=== PATIENT | female | born 1980 | race Caucasian/White ===

== ENCOUNTER 2017-06-27 23:50 | Observation (INO) | payer OTHER ==
[~2017-06-27 23:50] MED LIST: ASPI81TA25 PO; DARV PO; LABE200T2 PO; MEDR4PAK3 PO; NAPR550 PO; PREN29TA PO; PROM6.257 PO; SULF-154 PO; SYNT25TA PO; Z.0.NO CURRENT MEDS; ZITHTAB6 PO
[2017-06-28] VITALS (79 sets, daily range): BP systolic 98–156; BP diastolic 60–94; PULSE 64–90; RESP 16–20; TEMP 97.4–98.7; O2SAT 95–98
[2017-06-28] MEDS ORDERED: ACETAMINOPHEN 325 MG TAB PO PRN (01:15)
[2017-06-28] MEDS ORDERED: SODIUM CHLORIDE 0.9% FLUSH 10 ML FLUSH IV FLUSH PRN (01:15)
[2017-06-28] MEDS ORDERED: ZOLPIDEM TARTRATE 5 MG TAB PO PRN (01:15)
[2017-06-28] MEDS ORDERED: LABETALOL HCL 100 MG/20 ML VIAL IV PUSH PRN ×3 (01:15→01:30)
[2017-06-28] MEDS ORDERED: ONDANSETRON ODT 4 MG TAB PO PRN (01:15)
[2017-06-28] MEDS ORDERED: ALUMINUM/MAGNESIUM/SIMETH 30 ML CUP PO PRN (01:15)
--- NOTE | 2017-06-28 01:22 | HHI.HP ---
HPI Chief Complaint HATFIELD, swelling, elevated BP Date Seen: Jun 28, 2017 Time Seen: 01:15 Travel History International Travel<30 Days: No Contact w/Intl Traveler<30Days: No Known Affected Area: No History of Present Illness HPI Pt is a 36y/o G1 @ 25.6wks with lynda twins (IVF). She has PNC in [place]. She presented to the [facility] ED this evening due to HATFIELD, swelling, and diarrhea. While there, BPs were initially 180s/100s. They nadired at 150s/ 90s. Labs were performed and were significant for plts of 170s and elevated LFTs in the 60s. She has known cHTN and is on labetalol 200mg qday. She was transferred here for further evaluation/monitoring. No LOF, VB, ctx. +FM x2. is complicated by: -- IVF -- twins -- cHTN (on labetalol 200mg qday, ASA 81mg) -- worsening BPs/elevated LFTs -- hypothyroidism (on levothyroxine 25mcg qday) -- AMA Weeks Gestation: 25 Para: 0 : 1 History Past Medical History Narrative Medical cHTN hypothyroidism Obstetric History Obstetric History 1. current, IVF , lynda twins Past Surgical History Narrative Surgical IVF LSC ovarian cystectomy b/l bunionectomy Family History Family History: Negative Social History Alcohol Use: No Tobacco Use: No Substance Abuse: No Allergies-Medications (Allergen,Severity, Reaction): Coded Allergies: codeine (Verified Allergy, Unknown, Nausea/Vomiting, 06/27/17) No Known Allergies (Verified Adverse Reaction, Unknown, 06/27/17) Home Meds Reported Medications Labetalol (Labetalol) 200 Mg Tab, 200 MG PO DAILY for Blood Pressure Management , TAB 0 Refills 06/27/[address] (Aspirin Low Dose) 81 Mg Tabdr, 81 MG PO DAILY, TAB 06/27/17 Vit-Iron Carbonyl ( Plus Iron 29-1 mg) 29 Mg Iron-1 Mg Tab, 1 TAB PO DAILY for Nutritional Supplement, #30 TAB 0 Refills 06/27/17 Levothyroxine (Synthroid) 25 Mcg Tab, 25 MCG PO DAILY for Thyroid, #30 TAB 0 Refills 06/27/17 Review of Systems Except as stated in HPI: all other systems reviewed are Neg Physical Exam Narrative General: well developed, well nourished, no acute distress HEENT: normocephalic atraumatic, extraocular movements intact, neck supple Abdomen: soft, gravid, nontender, nondistended Extremities: full range of motion Skin: normal coloration, no rashes, no suspicious skin lesions noted Neurologic: cranial nerves 2-12 grossly intact, normal muscle tone, normal gait Psychiatric: normal mood and affect, appropriate FHTs: (A) 140s, +accels, no decels, moderate variability, age appropriate; (B ) 150s, +accels, no decels, moderate variability, age appropriate [address]: two ctx seen Cvx: deferred Caprini VTE Risk Assessment Caprini VTE Risk Assessment: No/Low Risk (score <= 1) Caprini Risk Assessment Model Point Value = 1 Point Value = 2 Point Value = 3 Point Value = 5 Age 41-60 Minor surgery BMI > 25 kg/m2 Swollen legs Varicose veins or History of unexplained or recurrent spontaneous Oral contraceptives or hormone replacement Sepsis (< 1 month) Serious lung disease, including pneumonia (< 1 month) Abnormal pulmonary function Acute myocardial infarction Congestive heart failure (< 1 month) History of inflammatory bowel disease Medical patient at bed rest Age 61-74 Arthroscopic surgery Major open surgery (> 45 min) Laparoscopic surgery (> 45 min) Malignancy Confined to bed (> 72 hours) Immobilizing plaster cast Central venous access Age >= 75 History of VTE Family history of VTE Factor V Leiden Prothrombin [id number] Lupus anticoagulant Anticardiolipin antibodies Elevated serum homocysteine Heparin-induced thrombocytopenia Other congenital or acquired thrombophilia Stroke (< 1 month) Elective arthroplasty Hip, pelvis, or leg fracture Acute spinal cord injury (< 1 month) 2 Prophylaxis Regimen Total Risk Factor Score Risk Level Prophylaxis Regimen 0-1 Low Early ambulation 2 Moderate Order ONE of the following: *Sequential Compression Device (SCD) *Heparin 5000 units SQ BID 3-4 Higher Order ONE of the following medications: *Heparin 5000 units SQ TID *Enoxaparin/Lovenox 40 mg SQ daily (WT < 150 kg, CrCl > 30 mL/min) *Enoxaparin/Lovenox 30 mg SQ daily (WT < 150 kg, CrCl > 10-29 mL/min) *Enoxaparin/Lovenox 30 mg SQ BID (WT < 150 kg, CrCl > 30 mL/min) AND/OR *Sequential Compression Device (SCD) 5 or more Highest Order ONE of the following medications: *Heparin 5000 units SQ TID (Preferred with Epidurals) *Enoxaparin/Lovenox 40 mg SQ daily (WT < 150 kg, CrCl > 30 mL/min) *Enoxaparin/Lovenox 30 mg SQ daily (WT < 150 kg, CrCl > 10-29 mL/min) *Enoxaparin/Lovenox 30 mg SQ BID (WT < 150 kg, CrCl > 30 mL/min) AND *Sequential Compression Device (SCD) 2 Data Data Vital Signs Reviewed: Yes Orders Orders Place In Observation (06/28/17 ) Diet Regular Basic (06/28/17 Breakfast) Vital Signs (Adult) ENRRIQUE.A2M-IMJPI AWAKE (06/28/17 01:05) Heart RT.Q12H (06/28/17 01:05) Activity Oob Ad Em (06/28/17 01:05) Complete Blood Count With Diff (06/28/17 06:00) Basic Metabolic Panel (Bmp) (06/28/17 06:00) Total Protein 24hr Urine (06/28/17 01:05) Acetaminophen (Tylenol) (06/28/17 01:15) Hikmaoce-Mpy-Byllj-Iron Prenat (Stuartna (06/28/17 09:00) Al-Mag Hy-Si 40-40-4 Mg/Ml Liq (Mag-Al P (06/28/17 01:15) Sodium Chloride 0.9% Flush (Ns Flush) (06/28/17 09:00) Sodium Chloride 0.9% Flush (Ns Flush) (06/28/17 01:15) Zolpidem (Ambien) (06/28/17 01:15) Ondansetron Odt (Zofran Odt) (06/28/17 01:15) Us Ob Limited (06/28/17 08:30) Betamethasone Inj (Celestone Soluspan In (06/28/17 01:15) Intake + Output Q1H (06/28/17 01:05) Notify Parameters (06/28/17 01:05) ^ Check Deep Tendon Reflexes Q1H (06/28/17 01:05) Labetalol Inj (Trandate Inj) (06/28/17 01:15) Labetalol Inj (Trandate Inj) (06/28/17 01:15) Labetalol Inj (Trandate Inj) (06/28/17 01:30) Uric Acid (06/29/17 06:00) Hep A Ab Igm (06/28/17 01:05) Hepatitis B Surface Ag (06/28/17 01:05) Hepatitis C Ab,Igg (06/28/17 01:05) Hepatitis Delta Antibody (06/28/17 01:05) Levothyroxine (Synthroid) (06/28/17 08:00) Labetalol (Trandate) (06/28/17 01:15) Florencia Bilateral/Knee High ENRRIQUE.QSHIFT (06/28/17 01:05) Assessment/Plan Problem List: (1) 25 weeks gestation of ICD Codes: Z3A.25 - 25 weeks gestation of (2) Twin , dichorionic/diamniotic, second trimester ICD Codes: O30.042 - Twin , dichorionic/diamniotic, second trimester (3) Chronic hypertension with exacerbation during in second trimester ICD Codes: O10.912 - Unspecified pre-existing hypertension complicating , second trimester (4) Elevated liver enzymes ICD Codes: R74.8 - Abnormal levels of other serum enzymes (5) AMA (advanced maternal age) primigravida 35+ ICD Codes: O09.519 - Supervision of elderly primigravida, unspecified trimester (6) conceived through in vitro fertilization ICD Codes: O09.819 - Supervision of resulting from assisted reproductive technology, unspecified trimester (7) Hypothyroidism affecting in second trimester ICD Codes: O99.282 - Endocrine, nutritional and metabolic diseases complicating , second trimester; E03.9 - Hypothyroidism, unspecified Assessment and Plan Pt is a 36y/o G1 @ 25.6wks with: 1. lynda twins -- conceived through IVF -- records requested -- growth scan in AM -- NSTs BID -- BMZ x2 for lung maturity 2. cHTN with elevated BPs -- continue labetalol 200mg qHS, titrate PRN -- repeat PIH labs in AM to ensure stability of plts and LFTs -- 24hr urine protein collection (no baseline this preg) 3. elevated LFTs -- concerning for early HELLP -- repeat labs in AM -- check hepatitis panel -- pt denies excessive tylenol use 4. edema -- FLORENCIA hose -- ?PIH/HELLP per above 5. hypothyroidism -- continue levothyroxine 25mg qday 6. Jordan Vides MD Jun 28, 2017 01:22
[2017-06-28] MEDS: BETAMETHASONE SOD PHOS/ACETATE SUSP 30 MG/5 ML VIAL IM SCH (02:41)
[2017-06-28] MEDS: LABETALOL HCL 200 MG TAB PO SCH ×2 (02:41→20:54)
[2017-06-28 06:04] LABS: BASOPHIL % 0.1 % (0.0-2.0); EOSINOPHIL % 0.3 % (0.0-4.0); HEMATOCRIT 31.6 % (35.0-46.0); HEMO FLAGS DIFF FINAL; LYMPH % 18.5 % (9.0-44.0); LYMPHOCYTE # 0.9 TH/MM3 (1.0-4.8); MEAN CORPUSCULAR HEMOGLOBIN 30.8 PG (27.0-34.0); MEAN CORPUSCULAR HGB CONC 34.6 % (32.0-36.0); MONO % 3.4 % (0.0-8.0); NEUT % 77.7 % (16.0-70.0); PLATELET COUNT 156 TH/MM3 (150-450); RED BLOOD COUNT 3.55 MIL/MM3 (4.00-5.30); RED CELL DISTRIBUTION WIDTH 13.6 % (11.6-17.2); WHITE BLOOD COUNT 5.1 TH/MM3 (4.0-11.0)
[2017-06-28 06:17] LABS: ANION GAP 10 MEQ/L (5-15); BICARBONATE 22.1 MEQ/L (21.0-32.0); BLOOD UREA NITROGEN 7 MG/DL (7-18); CHLORIDE 107 MEQ/L (98-107); GLOMERULAR FILTRATION RATE 131 ML/MIN (>89); POTASSIUM 3.6 MEQ/L (3.5-5.1); SODIUM (NA) 139 MEQ/L (136-145)
[2017-06-28 08:08] LABS: AST (GOT) 43 U/L (15-37); URIC ACID 5.4 MG/DL (2.6-6.0)
[2017-06-28 08:14] LABS: ALT (GPT) 72 U/L (10-53); TOTAL BILIRUBIN ADULT 0.4 MG/DL (0.2-1.0)
[2017-06-28 08:16] LABS: ALKALINE PHOSPHATASE 152 U/L (45-117)
[2017-06-28] MEDS: LEVOTHYROXINE SODIUM 25 MCG TAB PO SCH (08:20)
[2017-06-28] MEDS: MULTIVIT/MIN/PREN/FOL AC/IRON PRENATAL TAB PO SCH (09:00)
[2017-06-28] MEDS: SODIUM CHLORIDE 0.9% FLUSH 10 ML FLUSH IV FLUSH SCH ×2 (10:00→20:54)
[2017-06-28] MEDS ORDERED: ACETAMINOPHEN 650 MG/20.3 ML UDC PO PRN (11:30)
[2017-06-28] MEDS ORDERED: ASPIRIN 81 MG CHEW TAB ONE (11:47)
[2017-06-28] MEDS: ASPIRIN EC 81 MG TABEC PO SCH (11:48)
[2017-06-28] MEDS ORDERED: MAGNESIUM SULFATE 4 GM PREMIX 100 ML IV ONE (14:15)
--- NOTE | 2017-06-28 14:17 | PD.OB.ANTE ---
Subjective Diagnosis: (1) 25 weeks gestation of Diagnosis: Principal (2) Twin , dichorionic/diamniotic, second trimester Diagnosis: Principal (3) Chronic hypertension with exacerbation during in second trimester Diagnosis: Principal (4) Elevated liver enzymes Diagnosis: Principal (5) AMA (advanced maternal age) primigravida 35+ Diagnosis: Principal (6) conceived through in vitro fertilization Diagnosis: Principal (7) Hypothyroidism affecting in second trimester Diagnosis: Principal Interval History Patient is doing well. She had her ultrasound this morning with findings significant for borderline IUGR, 10th percentile in twin B (male) with reduced abdominal circumference. Estimated weight discordance of 23% between twin A (female) and twin B. Results and further plan of care were fully explained to patient in detail who expressed understanding and agreement. (Eko,Soco Ryder MD R2) Objective Vital Signs Vital Signs Date Time Temp Pulse Resp B/P (MAP) Pulse Ox O2 Delivery O2 Flow Rate FiO2 06/28/17 13:36 20 06/28/17 13:34 80 136/68 (90) 06/28/17 10:16 83 121/75 (90) 06/28/17 08:15 84 119/75 (90) 06/28/17 06:18 98.7 67 112/60 (77) 06/28/17 06:17 18 06/28/17 05:00 18 06/28/17 02:04 16 06/28/17 02:04 64 156/94 (114) Lab & Micro Results Test 06/28/17 05:30 White Blood Count 5.1 TH/MM3 Red Blood Count 3.55 MIL/MM3 Hemoglobin 10.9 GM/DL Hematocrit 31.6 % Mean Corpuscular Volume 89.0 FL Mean Corpuscular Hemoglobin 30.8 PG Mean Corpuscular Hemoglobin Concent 34.6 % Red Cell Distribution Width 13.6 % Platelet Count 156 TH/MM3 Mean Platelet Volume 9.7 FL Neutrophils (%) (Auto) 77.7 % Lymphocytes (%) (Auto) 18.5 % Monocytes (%) (Auto) 3.4 % Eosinophils (%) (Auto) 0.3 % Basophils (%) (Auto) 0.1 % Neutrophils # (Auto) 4.0 TH/MM3 Lymphocytes # (Auto) 0.9 TH/MM3 Monocytes # (Auto) 0.2 TH/MM3 Eosinophils # (Auto) 0.0 TH/MM3 Basophils # (Auto) 0.0 TH/MM3 CBC Comment DIFF FINAL Differential Comment Blood Urea Nitrogen 7 MG/DL Creatinine 0.53 MG/DL Random Glucose 108 MG/DL Total Protein 6.4 GM/DL Albumin 2.6 GM/DL Calcium Level 8.6 MG/DL Uric Acid 5.4 MG/DL Alkaline Phosphatase 152 U/L Aspartate Amino Transf (AST/SGOT) 43 U/L Alanine Aminotransferase (ALT/SGPT) 72 U/L Total Bilirubin 0.4 MG/DL Sodium Level 139 MEQ/L Potassium Level 3.6 MEQ/L Chloride Level 107 MEQ/L Carbon Dioxide Level 22.1 MEQ/L Anion Gap 10 MEQ/L Estimat Glomerular Filtration Rate 131 ML/MIN Hepatitis A IgM Antibody NEGATIVE Hepatitis B Surface Antigen NEGATIVE Hepatitis C Antibody NEGATIVE Physical Exam GENERAL: Well-nourished, well-developed patient. CARDIOVASCULAR: Well perfused RESPIRATORY: No accessory muscle use. ABDOMEN/GI: Gravid, nontender to palpation EXTREMITIES: No cyanosis or edema, non-tender, without signs of DVT. (Eko,Soco yRder MD R2) Assessment and Plan Problem List: (1) 25 weeks gestation of ICD Codes: Z3A.25 - 25 weeks gestation of (2) Twin , dichorionic/diamniotic, second trimester ICD Codes: O30.042 - Twin , dichorionic/diamniotic, second trimester (3) Chronic hypertension with exacerbation during in second trimester ICD Codes: O10.912 - Unspecified pre-existing hypertension complicating , second trimester (4) Elevated liver enzymes ICD Codes: R74.8 - Abnormal levels of other serum enzymes (5) AMA (advanced maternal age) primigravida 35+ ICD Codes: O09.519 - Supervision of elderly primigravida, unspecified trimester (6) conceived through in vitro fertilization ICD Codes: O09.819 - Supervision of resulting from assisted reproductive technology, unspecified trimester (7) Hypothyroidism affecting in second trimester ICD Codes: O99.282 - Endocrine, nutritional and metabolic diseases complicating , second trimester; E03.9 - Hypothyroidism, unspecified Assessment and Plan Pt is a 36y/o @ 25.6wks with: 1. Eugene twins -- Conceived through IVF --Growth scan performed: findings significant for borderline IUGR, 10th percentile in twin B (male) with reduced abdominal circumference. Estimated weight discordance of 23% between twin A (female) and twin B --Otherwise normal --Continue NSTs BID --BMZ x2 for lung maturity - received 1 dose 2. Chronic HTN with elevated BPs --Continue labetalol 200mg qHS, titrate PRN --Platelets and LFTs are stable. Repeat in a.m. --24hr urine protein collection in process --Start magnesium IV on neuro protection. 6 mg IV loading dose followed by 2 mg IV every one hour 3. Elevated LFTs --Concerning for early HELLP --Hepatitis panel is negative --Repeat LFTs in a.m. 4. Pedal edema --Not tolerating FLORENCIA hose. Start bilateral SCDs 5. Hypothyroidism --Continue levothyroxine 25mg qday Seen and examined with Dr. Kidd and Dr. Ambriz (Soco Fitzgerald MD R2) Assessment and Plan Patient seen and evaluated with resident under direct supervision, agree with assessment and plan. (Jonathan Kidd MD) Soco Fitzgerald MD R2 Jun 28, 2017 14:17 Jonathan Kidd MD Jul 01, 2017 09:07
[2017-06-28] MEDS: MAGNESIUM SULFATE 1 GM PREMIX 100 ML IV SCH ×2 (15:00→16:00)
[2017-06-28] MEDS: MAGNESIUM SULFATE 40 GM PREMIX 1,000 ML IV SCH (15:42)
[2017-06-29] VITALS (20 sets, daily range): BP systolic 110–136; BP diastolic 60–90; PULSE 65–114; RESP 16–18; TEMP 98–98.2
[2017-06-29] MEDS: BETAMETHASONE SOD PHOS/ACETATE SUSP 30 MG/5 ML VIAL IM SCH (01:02)
[2017-06-29 03:12] LABS: URINE TOTAL PROTEIN TIMED 9.8 MG/DL
[2017-06-29 04:47] LABS: HEMATOCRIT 31.3 % (35.0-46.0); MEAN CELL VOLUME 90.2 FL (80.0-100.0); MEAN CORPUSCULAR HEMOGLOBIN 31.2 PG (27.0-34.0); MEAN CORPUSCULAR HGB CONC 34.6 % (32.0-36.0); PLATELET COUNT 174 TH/MM3 (150-450); RED BLOOD COUNT 3.47 MIL/MM3 (4.00-5.30); RED CELL DISTRIBUTION WIDTH 14.1 % (11.6-17.2); REVIEW FLAG FINAL; WHITE BLOOD COUNT 6.8 TH/MM3 (4.0-11.0)
[2017-06-29 05:14] LABS: BICARBONATE 19.4 MEQ/L (21.0-32.0); CALCIUM-PROTEIN CORRECTED 7.6 MG/DL (8.5-10.1); POTASSIUM 3.7 MEQ/L (3.5-5.1); TOTAL BILIRUBIN ADULT 0.2 MG/DL (0.2-1.0)
[2017-06-29] MEDS: LEVOTHYROXINE SODIUM 25 MCG TAB PO SCH (06:20)
[2017-06-29] MEDS: MULTIVIT/MIN/PREN/FOL AC/IRON PRENATAL TAB PO SCH (09:00)
[2017-06-29] MEDS: ASPIRIN EC 81 MG TABEC PO SCH (09:00)
[2017-06-29] MEDS: SODIUM CHLORIDE 0.9% FLUSH 10 ML FLUSH IV FLUSH SCH ×2 (09:00→21:00)
[2017-06-29] MEDS: MAGNESIUM SULFATE 40 GM PREMIX 1,000 ML IV SCH (09:22)
[2017-06-29] MEDS: DOCUSATE SODIUM 50 MG/SENNA 8.6 MG TAB PO SCH ×2 (09:30→21:00)
--- NOTE | 2017-06-29 09:31 | PD.OB.ANTE ---
Subjective Diagnosis: (1) Twin , dichorionic/diamniotic, second trimester Diagnosis: Principal (2) Chronic hypertension with exacerbation during in second trimester Diagnosis: Principal (3) Elevated liver enzymes Diagnosis: Principal (4) AMA (advanced maternal age) primigravida 35+ Diagnosis: Secondary (5) conceived through in vitro fertilization Diagnosis: Secondary (6) Hypothyroidism affecting in second trimester Diagnosis: Secondary (7) 26 weeks gestation of Diagnosis: Principal Interval History 24 hour urine negative. LFTs continue to rise. 24 hours of magnesium for neuro protection done at 1 PM today. Patient received betamethasone injection 2 for lung maturity. OB ultrasound showed IUGR with asymmetric growth suggesting one twin has less blood flow via placenta. Antepartum ROS: Reports: New complaints (patient complains of alternating hot and cold, dry mouth, which she attributes to magnesium. Vaginal discharge is supervisor rough end in color today.), Other (decreased extremity swelling), Denies: Loss of fluid, Vaginal bleeding, movement normal, Contractions Objective Vital Signs Vital Signs Date Time Temp Pulse Resp B/P (MAP) Pulse Ox O2 Delivery O2 Flow Rate FiO2 06/29/17 08:00 98.2 06/29/17 07:58 18 06/29/17 07:55 77 135/82 (99) 06/29/17 04:36 76 136/88 (104) 06/29/17 02:56 75 110/60 (77) 06/29/17 01:05 98.0 06/29/17 01:02 87 122/70 (87) 06/28/17 22:57 75 126/71 (89) 06/28/17 22:00 72 123/78 (93) 06/28/17 21:00 73 137/79 (98) 06/28/17 20:53 18 06/28/17 20:52 97.4 06/28/17 20:50 82 06/28/17 20:45 76 06/28/17 20:40 75 06/28/17 20:35 80 06/28/17 20:30 76 06/28/17 20:25 78 06/28/17 20:20 77 06/28/17 20:15 74 06/28/17 20:10 73 06/28/17 20:05 74 06/28/17 20:00 75 120/68 (85) 06/28/17 20:00 74 06/28/17 19:13 74 18 128/67 (87) 06/28/17 19:10 75 06/28/17 19:05 77 06/28/17 19:00 72 06/28/17 18:45 87 06/28/17 18:40 75 06/28/17 18:35 72 06/28/17 18:30 72 06/28/17 18:25 70 06/28/17 18:20 75 06/28/17 18:16 97.9 18 06/28/17 18:15 78 06/28/17 18:10 74 06/28/17 18:05 76 06/28/17 18:01 71 138/72 (94) 06/28/17 18:00 77 06/28/17 18:00 16 06/28/17 17:55 79 06/28/17 17:50 73 06/28/17 17:45 73 06/28/17 17:40 70 06/28/17 17:35 74 06/28/17 17:30 73 06/28/17 17:25 70 06/28/17 17:20 67 06/28/17 17:15 72 06/28/17 17:10 76 06/28/17 17:05 70 06/28/17 17:03 65 131/78 (95) 06/28/17 17:01 69 122/77 (92) 06/28/17 16:40 70 06/28/17 16:35 73 06/28/17 16:31 77 129/67 (87) 06/28/17 16:30 74 06/28/17 16:25 74 06/28/17 16:20 75 06/28/17 16:15 74 06/28/17 16:10 78 06/28/17 16:05 77 06/28/17 16:01 73 119/80 (93) 06/28/17 16:00 78 06/28/17 15:55 78 06/28/17 15:50 78 06/28/17 15:49 16 06/28/17 15:45 80 06/28/17 15:44 80 122/82 (95) 06/28/17 15:41 82 117/67 (84) 06/28/17 15:40 82 98 06/28/17 15:36 86 129/79 (96) 06/28/17 15:35 86 95 06/28/17 15:30 16 06/28/17 15:30 82 06/28/17 15:30 84 122/75 (91) 96 06/28/17 15:26 90 98/67 (77) 06/28/17 15:25 85 97 06/28/17 15:21 82 122/80 (94) 06/28/17 15:20 82 97 06/28/17 15:16 79 124/78 (93) 06/28/17 13:36 20 06/28/17 13:34 80 136/68 (90) 06/28/17 10:16 83 121/75 (90) Lab & Micro Results Test 06/29/17 01:00 06/29/17 04:22 Urine Total Volume 24 Hours 2475 ML Urine Total Protein 24 Hour 243 MG/24HR White Blood Count 6.8 TH/MM3 Red Blood Count 3.47 MIL/MM3 Hemoglobin 10.8 GM/DL Hematocrit 31.3 % Mean Corpuscular Volume 90.2 FL Mean Corpuscular Hemoglobin 31.2 PG Mean Corpuscular Hemoglobin Concent 34.6 % Red Cell Distribution Width 14.1 % Platelet Count 174 TH/MM3 Mean Platelet Volume 10.3 FL Blood Urea Nitrogen 6 MG/DL Creatinine 0.75 MG/DL Random Glucose 149 MG/DL Total Protein 6.6 GM/DL Albumin 2.7 GM/DL Calcium Level 7.3 MG/DL Alkaline Phosphatase 160 U/L Aspartate Amino Transf (AST/SGOT) 64 U/L Alanine Aminotransferase (ALT/SGPT) 90 U/L Total Bilirubin 0.2 MG/DL Sodium Level 138 MEQ/L Potassium Level 3.7 MEQ/L Chloride Level 108 MEQ/L Carbon Dioxide Level 19.4 MEQ/L Anion Gap 11 MEQ/L Estimat Glomerular Filtration Rate 88 ML/MIN Protein Corrected Calcium 7.6 MG/DL Physical Exam GENERAL: Well-nourished, well-developed patient. CARDIOVASCULAR: Regular rate and rhythm without murmurs, gallops, or rubs. RESPIRATORY: Breath sounds equal bilaterally. No accessory muscle use. ABDOMEN/GI: Abdomen soft, non-tender. Fundus: Consistent with twin 26 week gestation GENITOURINARY: Uterine Contractions: Tocometry last recorded 07/08 afternoon without any contractions FHT's: Brief tracing from last night, 12/18, both babies with similar tracings Category: Category 1 Baseline: 140 Reactive: none Variability: Moderate Decels: none EXTREMITIES: No cyanosis or edema, non-tender, without signs of DVT. Assessment and Plan Problem List: (1) Twin , dichorionic/diamniotic, second trimester ICD Codes: O30.042 - Twin , dichorionic/diamniotic, second trimester (2) Chronic hypertension with exacerbation during in second trimester ICD Codes: O10.912 - Unspecified pre-existing hypertension complicating , second trimester (3) Elevated liver enzymes ICD Codes: R74.8 - Abnormal levels of other serum enzymes (4) AMA (advanced maternal age) primigravida 35+ ICD Codes: O09.519 - Supervision of elderly primigravida, unspecified trimester (5) conceived through in vitro fertilization ICD Codes: O09.819 - Supervision of resulting from assisted reproductive technology, unspecified trimester (6) Hypothyroidism affecting in second trimester ICD Codes: O99.282 - Endocrine, nutritional and metabolic diseases complicating , second trimester; E03.9 - Hypothyroidism, unspecified (7) 26 weeks gestation of ICD Codes: Z3A.26 - 26 weeks gestation of Assessment and Plan Pt is a 36y/o @ 26/0 wks with: 1. [place] twins --Conceived through IVF --Growth scan performed: findings significant for borderline IUGR, 10th percentile in twin B (male) with reduced abdominal circumference. Estimated weight discordance of 23% between twin A (female) and twin B; suggestive of a symmetric placental blood flow --Otherwise normal --Follow-up ultrasound in 2-3 weeks --Follow-up with M --Continue NSTs BID --BMZ x2 for lung maturity - received 2 doses 2. Chronic HTN with elevated BPs --Continue labetalol 200mg qHS, titrate PRN; may need to titrate up today as we plan to discontinue magnesium this afternoon --Platelets trended: 156, 174 and LFTs are increasing. AST: 43, 64. ALT 72, 90. Repeat in a.m. plan to transfer to [facility] if LFTs reach twice upper limit of normal --24hr urine protein of 243 --Complete 24 hours of magnesium IV for neuro protection this afternoon. 3. Elevated LFTs and LFTs are increasing. AST: 43, 64. ALT 72, 90. --Concerning for early HELLP or (severe) preeclampsia --Hepatitis panel is negative --Repeat LFTs in a.m. 4. Pedal edema --Not tolerating FLORENCIA hose. Start bilateral SCDs 5. Hypothyroidism --Continue levothyroxine 25mg qday 6. Constipation --Kinga-Colace one tab by mouth twice a day Patient discussed with Dr. Kidd. s/d/w Dr. Licea. Surjit Garcia MD R2 Jun 29, 2017 09:31
--- NOTE | 2017-06-29 17:05 | HHI.PR ---
Subjective Remarks NST report Indications: IUP at 26 weeks, chronic hypertension, possible superimposed severe preeclampsia, hypothyroidism, advanced maternal age, di/di twins by IVF heart rate baseline with fetus A in the 130s, some accelerations, moderate long-term variability, and no decelerations and fetus B in the 140s, moderate long-term variability, no decelerations, some accelerations: FHR is reassuring and appropriate for gestational age Final diagnosis:IUP at 26 weeks, chronic hypertension, possible superimposed severe preeclampsia, hypothyroidism, advanced maternal age, di/di twins by IVF Follow-up: We'll repeat NST tonight Objective Vital Signs Date Time Temp Pulse Resp B/P (MAP) Pulse Ox O2 Delivery O2 Flow Rate FiO2 06/29/17 16:41 98.1 06/29/17 16:41 18 06/29/17 16:37 77 132/81 (98) 06/29/17 16:36 114 125/90 (102) 06/29/17 15:00 16 06/29/17 14:10 77 123/78 (93) 06/29/17 12:00 18 06/29/17 11:56 78 123/79 (94) 06/29/17 10:00 16 06/29/17 09:46 77 114/80 (91) 06/29/17 08:00 98.2 06/29/17 07:58 18 06/29/17 07:55 77 135/82 (99) 06/29/17 04:36 76 136/88 (104) 06/29/17 02:56 75 110/60 (77) 06/29/17 01:05 98.0 06/29/17 01:02 87 122/70 (87) 06/28/17 22:57 75 126/71 (89) 06/28/17 22:00 72 123/78 (93) 06/28/17 21:00 73 137/79 (98) 06/28/17 20:53 18 06/28/17 20:52 97.4 06/28/17 20:50 82 06/28/17 20:45 76 06/28/17 20:40 75 06/28/17 20:35 80 06/28/17 20:30 76 06/28/17 20:25 78 06/28/17 20:20 77 06/28/17 20:15 74 06/28/17 20:10 73 06/28/17 20:05 74 06/28/17 20:00 75 120/68 (85) 06/28/17 20:00 74 06/28/17 19:13 74 18 128/67 (87) 06/28/17 19:10 75 06/28/17 19:05 77 06/28/17 19:00 72 06/28/17 18:45 87 06/28/17 18:40 75 06/28/17 18:35 72 06/28/17 18:30 72 06/28/17 18:25 70 06/28/17 18:20 75 06/28/17 18:16 97.9 18 06/28/17 18:15 78 06/28/17 18:10 74 06/28/17 18:05 76 06/28/17 18:01 71 138/72 (94) 06/28/17 18:00 77 06/28/17 18:00 16 06/28/17 17:55 79 06/28/17 17:50 73 06/28/17 17:45 73 06/28/17 17:40 70 06/28/17 17:35 74 06/28/17 17:30 73 06/28/17 17:25 70 06/28/17 17:20 67 06/28/17 17:15 72 06/28/17 17:10 76 06/28/17 17:05 70 06/28/17 17:03 65 131/78 (95) Result Diagram: 06/29/17 0422 06/29/17 042 Kandi Licea MD Jun 29, 2017 17:05
--- NOTE | 2017-06-29 17:10 | HHI.PR ---
Subjective Remarks [facility] Went to see patient and discuss maintaining IV access in the event an emergent intervention is needed. The patient reports IV is uncomfortable in her hand. Discussed that during emergency IV access can be difficult to obtain and resultant potential delay of care and suboptimal outcomes. Patient reported that she has a cough which she's had for the past couple days. She reports she feels flushed but the magnesium was recently stopped. She is requesting early laboratory check with the hopes of being discharged home. Her vital signs are stable with stable blood pressure. On physical examination she does not appear flushed and she appears to be resting comfortably in the bed. A thorough pulmonary examination was performed which revealed no crackles, rales, or wheezes. She denies any OB complaints. She denies any headache. We will order medication to assist with rest tonight, as well as for cough. In addition we will move the IV site to be more comfortable. We will defer labs until 24 hours. The patient expressed understanding. Objective Vital Signs Date Time Temp Pulse Resp B/P (MAP) Pulse Ox O2 Delivery O2 Flow Rate FiO2 06/29/17 16:41 98.1 06/29/17 16:41 18 06/29/17 16:37 77 132/81 (98) 06/29/17 16:36 114 125/90 (102) 06/29/17 15:00 16 06/29/17 14:10 77 123/78 (93) 06/29/17 12:00 18 06/29/17 11:56 78 123/79 (94) 06/29/17 10:00 16 06/29/17 09:46 77 114/80 (91) 06/29/17 08:00 98.2 06/29/17 07:58 18 06/29/17 07:55 77 135/82 (99) 06/29/17 04:36 76 136/88 (104) 06/29/17 02:56 75 110/60 (77) 06/29/17 01:05 98.0 06/29/17 01:02 87 122/70 (87) 06/28/17 22:57 75 126/71 (89) 06/28/17 22:00 72 123/78 (93) 06/28/17 21:00 73 137/79 (98) 06/28/17 20:53 18 06/28/17 20:52 97.4 06/28/17 20:50 82 06/28/17 20:45 76 06/28/17 20:40 75 06/28/17 20:35 80 06/28/17 20:30 76 06/28/17 20:25 78 06/28/17 20:20 77 06/28/17 20:15 74 06/28/17 20:10 73 06/28/17 20:05 74 06/28/17 20:00 75 120/68 (85) 06/28/17 20:00 74 06/28/17 19:13 74 18 128/67 (87) 06/28/17 19:10 75 06/28/17 19:05 77 06/28/17 19:00 72 06/28/17 18:45 87 06/28/17 18:40 75 06/28/17 18:35 72 06/28/17 18:30 72 06/28/17 18:25 70 06/28/17 18:20 75 06/28/17 18:16 97.9 18 06/28/17 18:15 78 06/28/17 18:10 74 06/28/17 18:05 76 06/28/17 18:01 71 138/72 (94) 06/28/17 18:00 77 06/28/17 18:00 16 06/28/17 17:55 79 06/28/17 17:50 73 06/28/17 17:45 73 06/28/17 17:40 70 06/28/17 17:35 74 06/28/17 17:30 73 06/28/17 17:25 70 06/28/17 17:20 67 06/28/17 17:15 72 06/28/17 17:10 76 Result Diagram: 06/29/17 0422 06/29/17 042 Kandi Licea MD Jun 29, 2017 17:10
[2017-06-29] MEDS ORDERED: BENZONATATE 100 MG CAP PO PRN (19:15)
[2017-06-29] MEDS: LABETALOL HCL 200 MG TAB PO SCH (21:00)
[2017-06-30 05:47] VITALS: BP 125/76; PULSE 66
[2017-06-30 06:00] VITALS: RESP 18; TEMP 98
[2017-06-30] MEDS: LEVOTHYROXINE SODIUM 25 MCG TAB PO SCH (06:00)
[2017-06-30 07:18] VITALS: TEMP 98
[2017-06-30 07:19] VITALS: BP 124/77; PULSE 67
--- NOTE | 2017-06-30 08:00 | PD.OB.ANTE ---
Subjective Diagnosis: (1) Twin , dichorionic/diamniotic, second trimester Diagnosis: Principal (2) Chronic hypertension with exacerbation during in second trimester Diagnosis: Principal (3) Elevated liver enzymes Diagnosis: Principal (4) AMA (advanced maternal age) primigravida 35+ Diagnosis: Secondary (5) conceived through in vitro fertilization Diagnosis: Secondary (6) Hypothyroidism affecting in second trimester Diagnosis: Secondary (7) 26 weeks gestation of Diagnosis: Principal Interval History IUP at 26 weeks, chronic hypertension, possible superimposed severe preeclampsia , hypothyroidism, advanced maternal age, di/di twins by IVF presented with elevated blood pressures, LFTs trended up, concerning for possible superimposed preeclampsia. Antepartum ROS: Reports: Other (same c/o constipation and dry mouth; decreased swelling, she denies any headache, chest pain, abdominal pain), Denies: New complaints, Loss of fluid, Vaginal bleeding, movement normal, Contractions (Surjit Garcia MD R2) Objective Vital Signs Vital Signs Date Time Temp Pulse Resp B/P (MAP) Pulse Ox O2 Delivery O2 Flow Rate FiO2 06/30/17 07:18 98.0 06/30/17 06:00 18 06/30/17 06:00 98.0 06/30/17 05:47 66 125/76 (92) 06/29/17 21:30 65 114/75 (88) 06/29/17 20:00 98.1 18 06/29/17 18:00 18 06/29/17 17:55 69 119/76 (90) 06/29/17 16:41 98.1 06/29/17 16:41 18 06/29/17 16:37 77 132/81 (98) 06/29/17 16:36 114 125/90 (102) 06/29/17 15:00 16 06/29/17 14:10 77 123/78 (93) 06/29/17 12:00 18 06/29/17 11:56 78 123/79 (94) 06/29/17 10:00 16 06/29/17 09:46 77 114/80 (91) 06/29/17 08:00 98.2 06/29/17 07:58 18 06/29/17 07:55 77 135/82 (99) Physical Exam GENERAL: Well-nourished, well-developed patient. CARDIOVASCULAR: Regular rate and rhythm without murmurs, gallops, or rubs. RESPIRATORY: Breath sounds equal bilaterally. No accessory muscle use. ABDOMEN/GI: Abdomen soft, non-tender. Fundus: Consistent with di-di gestation at 26 weeks GENITOURINARY: External Genitalia: intact and normal in appearance FHT's: Category: Category 1 Baseline: Blue twin with Baseline heart rate of 150, red twin with baseline heart rate of 145 Reactive: Both seem reactive for gestational age Variability: Moderate variability Decels: None noted EXTREMITIES: No cyanosis or edema, non-tender, without signs of DVT. (Surjit Garcia MD R2) Assessment and Plan Problem List: (1) Twin , dichorionic/diamniotic, second trimester ICD Codes: O30.042 - Twin , dichorionic/diamniotic, second trimester (2) Chronic hypertension with exacerbation during in second trimester ICD Codes: O10.912 - Unspecified pre-existing hypertension complicating , second trimester (3) Elevated liver enzymes ICD Codes: R74.8 - Abnormal levels of other serum enzymes (4) AMA (advanced maternal age) primigravida 35+ ICD Codes: O09.519 - Supervision of elderly primigravida, unspecified trimester (5) conceived through in vitro fertilization ICD Codes: O09.819 - Supervision of resulting from assisted reproductive technology, unspecified trimester (6) Hypothyroidism affecting in second trimester ICD Codes: O99.282 - Endocrine, nutritional and metabolic diseases complicating , second trimester; E03.9 - Hypothyroidism, unspecified (7) 26 weeks gestation of ICD Codes: Z3A.26 - 26 weeks gestation of Assessment and Plan Pt is a 36y/o with IUP at 26 weeks, chronic hypertension, possible superimposed severe preeclampsia, hypothyroidism, advanced maternal age, di/di twins by IVF presented with elevated blood pressures, LFTs trended up, concerning for possible superimposed preeclampsia. 1. [place] twins --Conceived through IVF --Growth scan performed: findings significant for borderline IUGR, 10th percentile in twin B (male) with reduced abdominal circumference. Estimated weight discordance of 23% between twin A (female) and twin B; suggestive of a symmetric placental blood flow --Otherwise normal --Follow-up ultrasound in 2-3 weeks --Follow-up with MFM --Continue NSTs BID --BMZ x2 for lung maturity - received 2 doses (06/28-06/29) 2. Chronic HTN with elevated BPs --Continue labetalol 200mg qHS, titrate PRN; may need to titrate up as needed --Patient received 24 hours of IV magnesium for neuro protection from 06/28-06/29 --Platelets trended: 156, 174 and LFTs are increasing. AST: 43, 64. ALT 72, 90. Today's labs are pending. Repeat q a.m. Plan to transfer to [facility] if LFTs reach twice upper limit of normal --24hr urine protein of 243 3. Elevated LFTs and LFTs are increasing. AST: 43, 64. ALT 72, 90. --Concerning for early HELLP or (severe) preeclampsia --Hepatitis panel is negative --Repeat LFTs in a.m. --see plan above 4. Pedal edema --Not tolerating FLORENCIA hose. Start bilateral SCDs 5. Hypothyroidism --Continue levothyroxine 25mcg qday 6. Constipation --Kinga-Colace two tab by mouth twice a day 7. Cough --Tessalon Perles when necessary s/d/w Dr. Licea. (Surjit Garcia MD R2) Assessment and Plan The patient was personally seen and examined by me; We are awaiting results of this am labs which will be followed up by Dr. Whyte. (Kandi Licea MD) Surjit Garcia MD R2 Jun 30, 2017 08:00 Kandi Licea MD Jul 02, 2017 19:05
--- NOTE | 2017-06-30 08:07 | HHI.PR ---
Subjective Remarks [facility] report Indications: IUP at 26.1 weeks, chronic hypertension, possible superimposed severe preeclampsia, hypothyroidism, advanced maternal age, di/di twins by IVF heart rate baseline with fetus A in the 140s, some accelerations, moderate long-term variability, and no decelerations and fetus B in the 150s, moderate long-term variability, no decelerations, some accelerations: FHR is reassuring and appropriate for gestational age Final diagnosis:IUP at 26.1 weeks, chronic hypertension, possible superimposed severe preeclampsia, hypothyroidism, advanced maternal age, di/di twins by IVF Follow-up: as clinically indicated Objective Vital Signs Date Time Temp Pulse Resp B/P (MAP) Pulse Ox O2 Delivery O2 Flow Rate FiO2 06/30/17 07:18 98.0 06/30/17 06:00 18 06/30/17 06:00 98.0 06/30/17 05:47 66 125/76 (92) 06/29/17 21:30 65 114/75 (88) 06/29/17 20:00 98.1 18 06/29/17 18:00 18 06/29/17 17:55 69 119/76 (90) 06/29/17 16:41 98.1 06/29/17 16:41 18 06/29/17 16:37 77 132/81 (98) 06/29/17 16:36 114 125/90 (102) 06/29/17 15:00 16 06/29/17 14:10 77 123/78 (93) 06/29/17 12:00 18 06/29/17 11:56 78 123/79 (94) 06/29/17 10:00 16 06/29/17 09:46 77 114/80 (91) Result Diagram: 06/29/1742106/29/17421 Kandi Licea MD Jun 30, 2017 08:07
[2017-06-30 08:24] LABS: HEMATOCRIT 28.7 % (35.0-46.0); MEAN CORPUSCULAR HEMOGLOBIN 31.7 PG (27.0-34.0); MEAN CORPUSCULAR HGB CONC 34.9 % (32.0-36.0); PLATELET COUNT 147 TH/MM3 (150-450); RED BLOOD COUNT 3.15 MIL/MM3 (4.00-5.30); RED CELL DISTRIBUTION WIDTH 13.9 % (11.6-17.2); REVIEW FLAG FINAL; WHITE BLOOD COUNT 6.9 TH/MM3 (4.0-11.0)
[2017-06-30 08:49] LABS: ANION GAP 12 MEQ/L (5-15); AST (GOT) 51 U/L (15-37); BICARBONATE 20.5 MEQ/L (21.0-32.0); BLOOD UREA NITROGEN 8 MG/DL (7-18); CHLORIDE 106 MEQ/L (98-107); GLOMERULAR FILTRATION RATE 87 ML/MIN (>89); POTASSIUM 3.6 MEQ/L (3.5-5.1); SODIUM (NA) 138 MEQ/L (136-145)
[2017-06-30 08:51] LABS: ALT (GPT) 87 U/L (10-53)
[2017-06-30 08:53] LABS: ALKALINE PHOSPHATASE 142 U/L (45-117); TOTAL BILIRUBIN ADULT 0.2 MG/DL (0.2-1.0)
[2017-06-30] MEDS: MULTIVIT/MIN/PREN/FOL AC/IRON PRENATAL TAB PO SCH (09:00)
[2017-06-30] MEDS ORDERED: DOCUSATE SODIUM 50 MG/SENNA 8.6 MG TAB PO SCH (09:00)
[2017-06-30] MEDS: ASPIRIN EC 81 MG TABEC PO SCH (09:15)
--- NOTE | 2017-06-30 10:27 | HHI.DS ---
Discharge Summary Admission Date Jun 28, 2017 at 00:00 Discharge Date: Jun 30, 2017 Admitting Diagnosis #1 26 week dichorionic diamniotic twin gestation #2 advanced maternal age #3 IVF #4 hypertensive crisis #5 chronic hypertension on labetalol 200 mg daily #6 borderline IUGR twin B #7 hypothyroidism #8 mild elevation of transaminases #9 anemia (1) Elevated liver enzymes Diagnosis: Principal ICD Codes: R74.8 - Abnormal levels of other serum enzymes (2) AMA (advanced maternal age) primigravida 35+ Diagnosis: Principal ICD Codes: O09.519 - Supervision of elderly primigravida, unspecified trimester (3) Twin , dichorionic/diamniotic, second trimester Diagnosis: Principal ICD Codes: O30.042 - Twin , dichorionic/diamniotic, second trimester (4) 25 weeks gestation of Diagnosis: Principal ICD Codes: Z3A.25 - 25 weeks gestation of (5) Chronic hypertension with exacerbation during in second trimester Diagnosis: Principal ICD Codes: O10.912 - Unspecified pre-existing hypertension complicating , second trimester (6) Hypothyroidism affecting in second trimester Diagnosis: Secondary ICD Codes: O99.282 - Endocrine, nutritional and metabolic diseases complicating , second trimester; E03.9 - Hypothyroidism, unspecified (7) conceived through in vitro fertilization Diagnosis: Secondary ICD Codes: O09.819 - Supervision of resulting from assisted reproductive technology, unspecified trimester (8) 26 weeks gestation of Diagnosis: Principal ICD Codes: Z3A.26 - 26 weeks gestation of Brief History The patient was admitted after evaluation at [facility] revealed a hypertensive crisis at 25 weeks 5 days gestation. She was initiated on a rule out preeclampsia protocol. She received betamethasone and magnesium sulfate for neuro prophylaxis for 24 hours. Her blood pressures remained below severe range on 200 mg of labetalol daily. Her laboratory assessment demonstrated a 24-hour total protein level in her urine less than 300 mg with mild elevation of her transaminase levels which did not reach twice normal. Prior to discharge her AST was 51 and her a LT was 87 with platelets of 147. Ultrasound at [facility] on Saturday demonstrated borderline IUGR of twin B with an estimated weight in the 10th percentile. She had normal Doppler studies of the umbilical cord. I discussed the patient with Dr. Alejandra from [facility] who agreed that this patient would be a candidate for close outpatient follow- up. The patient reports having recently transferred her care to Dr. raphael and has an appointment tomorrow with him. [facility] recommended an additional follow-up visit on for repeat blood work and blood pressure evaluation. Ongoing ultrasound surveillance should also be arranged through [facility]. CBC/BMP: 06/30/17 0725 06/30/17 0725 Significant Findings Laboratory Tests Test 06/28/17 05:30 06/29/17 01:00 06/29/17 04:22 06/30/17 07:25 Red Blood Count 3.55 MIL/MM3 (4.00-5.30) 3.47 MIL/MM3 (4.00-5.30) 3.15 MIL/MM3 (4.00-5.30) Hemoglobin 10.9 GM/DL (11.6-15.3) 10.8 GM/DL (11.6-15.3) 10.0 GM/DL (11.6-15.3) Hematocrit 31.6 % (35.0-46.0) 31.3 % (35.0-46.0) 28.7 % (35.0-46.0) Neutrophils (%) (Auto) 77.7 % (16.0-70.0) Lymphocytes # (Auto) 0.9 TH/MM3 (1.0-4.8) Random Glucose 108 MG/DL (74-106) 149 MG/DL (74-106) 110 MG/DL (74-106) Albumin 2.6 GM/DL (3.4-5.0) 2.7 GM/DL (3.4-5.0) 2.5 GM/DL (3.4-5.0) Alkaline Phosphatase 152 U/L (45-117) 160 U/L (45-117) 142 U/L (45-117) Aspartate Amino Transf (AST/SGOT) 43 U/L (15-37) 64 U/L (15-37) 51 U/L (15-37) Alanine Aminotransferase (ALT/SGPT) 72 U/L (10-53) 90 U/L (10-53) 87 U/L (10-53) Urine Total Protein 24 Hour 243 MG/24HR (0-150) Blood Urea Nitrogen 6 MG/DL (7-18) Calcium Level 7.3 MG/DL (8.5-10.1) 7.5 MG/DL (8.5-10.1) Chloride Level 108 MEQ/L (98-107) Carbon Dioxide Level 19.4 MEQ/L (21.0-32.0) 20.5 MEQ/L (21.0-32.0) Estimat Glomerular Filtration Rate 88 ML/MIN (>89) 87 ML/MIN (>89) Protein Corrected Calcium 7.6 MG/DL (8.5-10.1) Platelet Count 147 TH/MM3 (150-450) Total Protein 6.2 GM/DL (6.4-8.2) Imaging ultrasound on June 28 demonstrated twin B estimated weight at the 10th percentile. Doppler studies were normal on both twins. PE at Discharge Reassuring heart rate surveillance. Blood pressures 130s over 80s Decreased lower extremity edema compared to admission Normal deep tendon reflexes Abdomen is soft nontender nondistended Pt Condition on Discharge: Stable Discharge Disposition: Discharge Home Discharge Instructions DIET: Follow Instructions for: As Tolerated, No Restrictions ( restrictions) Activities you can perform: Regular-No Restrictions (encouraged to rest frequently throughout the day) Activities to avoid: Prolonged Standing Additional Information Follow-up with Dr. Raphael on July 01 for blood pressure check. Recommend repeat blood pressure evaluation on along with repeat of her CBC and liver function tests. Jonathan Kidd MD Jun 30, 2017 10:27
[2017-07-01] MEDS ORDERED: LABE200T2 PO (12:58)
== END 2017-06-30 10:51 | disposition home or self-care (01) ==
LOC: NEDDLT 23:50 → UNDOADMOB 06-28 → H2EA 06-28
PROVIDERS: ADMIT Obstetrics & Gynecology; ATTEND Obstetrics & Gynecology
DX: O10.912 Unspecified pre-existing hypertension complicating pregnancy, second trimester (principal); O30.042 Twin pregnancy, dichorionic/diamniotic, second trimester; O99.282 Endocrine, nutritional and metabolic diseases complicating pregnancy, second trimester; O09.812 Supervision of pregnancy resulting from assisted reproductive technology, second trimester; R79.89 Other specified abnormal findings of blood chemistry; E03.9 Hypothyroidism, unspecified; O09.512 Supervision of elderly primigravida, second trimester; I16.9 Hypertensive crisis, unspecified; R74.0 Nonspecific elevation of levels of transaminase and lactic acid dehydrogenase [LDH]; R74.8 Abnormal levels of other serum enzymes; O99.012 Anemia complicating pregnancy, second trimester; Z3A.26 26 weeks gestation of pregnancy
CPT/HCPCS: 76816; 80053; 84157; 84550; 85025; 85027; 86692; 86709; 86803; 87340; 96365; 96372; 96376; G0378; J0702; J3475

== ENCOUNTER 2017-07-01 10:06 | Emergency (ER) | payer OTHER ==
[~2017-07-01] VITALS: Ht 152.4 cm; Wt 59.9 kg
[~2017-07-01 10:06] MED LIST changes: -DARV PO; -MEDR4PAK3 PO; -NAPR550 PO; -PROM6.257 PO; -SULF-154 PO; -Z.0.NO CURRENT MEDS; -ZITHTAB6 PO
[2017-07-01 10:45] VITALS: TEMP 98
[2017-07-01] MEDS ORDERED: NIFEdipine 10 MG CAP PO ONE (11:00)
--- NOTE | 2017-07-01 11:07 | PD ---
HPI Chief Complaint High blood pressure Date Seen: Jul 01, 2017 Travel History International Travel<30 Days: No Contact w/Intl Traveler<30Days: No Known Affected Area: No History of Present Illness HPI Pt is a 36y/o @ 26/2 weeks gestation with lynda twins (IVF) that was recently discharged yesterday from the [facility] antepartum service on 2016. is complicated by IVF, di-di twins, chronic hypertension, hypothyroidism, and advanced maternal age. Patient was admitted to the [facility] antepartum service for a hypertensive crisis at this 25/5 weeks gestation and was initiated on a rule out preeclampsia protocol. She received betamethasone and magnesium sulfate for neuro prophylaxis for 24 hours. Her blood pressures remain below severe range on 200 mg of labetalol daily and her 24-hour total protein level was less than 300 mg with mild elevation of her transaminase levels. Prior to discharge, her AST was 51 and ALT was 87 with platelets of 147. Ultrasound was performed by [facility] on Thursday 06/28 which revealed borderline IUGR twin B with an estimated weight in the 10th percentile. The Doppler studies of the umbilical cord was normal. Discussion with Dr. Alejandra from the [facility] group resulted in agreement to discharge the patient with close outpatient follow-up. She had registered to establish care with Dr. Raphael and had an appointment scheduled with him for today. She was also to have her blood pressure checked today at his office as well as an additional follow-up visit on this week for repeat blood work and blood pressure evaluation. However, the patient is not able to establish with Dr. Raphael's due to difficulty with financial arrangements. She decided to come in today to the OB ED because she could not see Dr. Raphael in clinic today. Initial evaluation of her blood pressures show systolic blood pressures in the low 160s 2. However, the patient denies any symptoms including headache, blurry vision, chest pain, shortness of breath, right upper quadrant pain, abdominal pain/cramping/contractions, gush or leakage of fluid, vaginal bleeding , increased pedal edema. She endorses positive movements. Weeks Gestation: 1 Para: 0 History Past Medical History Narrative Medical Chronic HTN Hypothyroidism Obstetric History Obstetric History Current, IVF , lynda twins Past Surgical History Narrative Surgical IVF LSC ovarian cystectomy b/l bunionectomy Family History Family History: Negative Social History Alcohol Use: No Tobacco Use: No Substance Abuse: No Allergies-Medications (Allergen,Severity, Reaction): Coded Allergies: codeine (Verified Allergy, Unknown, Nausea/Vomiting, 06/27/17) Home Meds Active Scripts Labetalol (Labetalol) 200 Mg Tab, 200 MG PO DAILY for Blood Pressure Management , #45 TAB 3 Refills Take a half pill in the morning and 1 pill at bedtime. Prov:Eko,Soco Ryder MD R2 07/01/[address] (Aspirin Low Dose) 81 Mg Tabdr, 81 MG PO DAILY, TAB 06/27/17 Vit-Iron Carbonyl ( Plus Iron 29-1 mg) 29 Mg Iron-1 Mg Tab, 1 TAB PO DAILY for Nutritional Supplement, #30 TAB 0 Refills 06/27/17 Levothyroxine (Synthroid) 25 Mcg Tab, 25 MCG PO DAILY for Thyroid, #30 TAB 0 Refills 06/27/17 Review of Systems Except as stated in HPI: all other systems reviewed are Neg (please see history of present illness) Physical Exam Narrative GENERAL: Well-nourished, well-developed patient. SKIN: Warm and dry. HEAD: Normocephalic and atraumatic. EYES: No scleral icterus. No injection or drainage. ENT: No nasal drainage noted. Mucous membranes pink. Airway patent. NECK: Supple, trachea midline. No JVD. CARDIOVASCULAR: Regular rate and rhythm without murmurs, gallops, or rubs. RESPIRATORY: Breath sounds equal bilaterally. No accessory muscle use. ABDOMEN/GI: Abdomen soft, non-tender, bowel sounds present, no rebound, no guarding Gravid to 26 weeks size GENITOURINARY: Uterine Contractions: none FHT's: Category: I for both fetuses, reactive, moderately variable, no decels EXTREMITIES: No cyanosis, mild edema. NEUROLOGICAL: Awake and alert. Motor and sensory grossly within normal limits. Five out of 5 muscle strength in all muscle groups. Normal speech. Data Data Vital Signs Reviewed: Yes Orders Orders Nifedipine (Procardia) (07/01/17 11:00) Vital Signs (Adult) .ON ADMISSION (07/01/17 11:04) ^ Labor Status (07/01/17 11:04) ^ Non Stress Test (07/01/17 11:04) Nifedipine (Procardia) (07/01/17 11:15) MDM Medical Record Reviewed: Yes Interpretation(s) 36-year-old at 26/2 weeks gestation with di-di twins, complicated by chronic hypertension, presents with asymptomatic elevated systolic blood pressures in the 160s. AST 39, ALT 75, platelets 163 much improved compared to the previous day of AST 51, ALT 87, platelets 147. Plan Intrauterine , heart tones reassuring at category 1 with Lynda twins -Initial blood pressures of 162/91 improved to 113/72 and 130/78 20 minutes after administration of nifedipine 10 mg PO -Continue labetalol 100 mg by mouth once in the morning and 200 mg by mouth at bedtime. Prescription written with refills -Plan to discharge home with close follow-up. Patient already has an appointment set up with the [facility] -Patient will have a CBC and CMP repeated on Saturday07/08/17 Diagnosis Diagnosis: Primary Impression: Chronic hypertension in obstetric context in second trimester Additional Impressions: 26 weeks gestation of conceived through in vitro fertilization Twin , dichorionic/diamniotic, second trimester Elevated liver enzymes Disposition: 01 DISCHARGE HOME Condition: Stable Scripts Labetalol (Labetalol) 200 Mg Tab 200 MG PO DAILY for Blood Pressure Management, #45 TAB 3 Refills Take a half pill in the morning and 1 pill at bedtime. Prov: Soco Fitzgerald MD R2 07/01/17 Soco Fitzgerald MD R2 Jul 01, 2017 11:07
[2017-07-01] MEDS ORDERED: NIFEdipine 10 MG CAP PO PRN (11:15)
[2017-07-01 11:18] VITALS: BP 113/72; PULSE 86
[2017-07-01 11:42] VITALS: BP 130/78; PULSE 66
[2017-07-01 12:14] LABS: MEAN CELL VOLUME 89.7 FL (80.0-100.0); MEAN CORPUSCULAR HEMOGLOBIN 31.2 PG (27.0-34.0); MEAN CORPUSCULAR HGB CONC 34.7 % (32.0-36.0); PLATELET COUNT 163 TH/MM3 (150-450); RED BLOOD COUNT 3.46 MIL/MM3 (4.00-5.30); REVIEW FLAG FINAL; WHITE BLOOD COUNT 7.7 TH/MM3 (4.0-11.0)
[2017-07-01 12:23] LABS: BACTERIA, URINE MOD /hpf; BLOOD, URINE NEG (NEG); COMMENT (UR) CULTURE INDICATED; CULTURE IF INDICATED CULTURE INDICATED; GLUCOSE,URINE NEG (NEG); KETONE, URINE NEG (NEG); MUCUS URINE FEW /lpf (OCC); NITRITE,URINE NEG (NEG); PH, URINE 5.5 (5.0-8.5); SQUAMOUS EPITHELIAL CELL URINE 4 /hpf (0-5); URINE COLOR YELLOW (YELLW/STRAW)
[2017-07-01 12:38] LABS: ALKALINE PHOSPHATASE 148 U/L (45-117); ALT (GPT) 75 U/L (10-53); ANION GAP 9 MEQ/L (5-15); AST (GOT) 39 U/L (15-37); BICARBONATE 22.6 MEQ/L (21.0-32.0); BLOOD UREA NITROGEN 11 MG/DL (7-18); CHLORIDE 106 MEQ/L (98-107); GLOMERULAR FILTRATION RATE 108 ML/MIN (>89); POTASSIUM 3.9 MEQ/L (3.5-5.1); SODIUM (NA) 138 MEQ/L (136-145); TOTAL BILIRUBIN ADULT 0.3 MG/DL (0.2-1.0)
[2017-07-01] MEDS ORDERED: LABE200T2 PO (12:58)
== END 2017-07-01 14:03 | disposition home or self-care (01) ==
LOC: HOBED 10:06
DX: O10.912 Unspecified pre-existing hypertension complicating pregnancy, second trimester (principal); O99.282 Endocrine, nutritional and metabolic diseases complicating pregnancy, second trimester; E03.9 Hypothyroidism, unspecified; O30.042 Twin pregnancy, dichorionic/diamniotic, second trimester; O09.512 Supervision of elderly primigravida, second trimester; R74.8 Abnormal levels of other serum enzymes; R82.71 Bacteriuria; Z3A.26 26 weeks gestation of pregnancy
CPT/HCPCS: 36415; 80053; 81001; 85027; 87086; 99284

== ENCOUNTER 2017-07-04 09:44 | Emergency (ER) | payer OTHER ==
[2017-07-04] MEDS ORDERED: NIFEdipine 10 MG CAP PO PRN (10:30)
[2017-07-04 10:41] VITALS: BP 182/110; PULSE 60
--- NOTE | 2017-07-04 10:45 | PD ---
History of Present Illness Date Seen: Jul 04, 2017 Time Seen: 10:30 History of Present Illness Patient Name: Elie Bull Unit Number: [id number] Date of : 1980 HPI Chief Complaint , elevated BP Date Seen: Jul 04, 2017 Time Seen: 1030 Travel History International Travel<30 Days: No Contact w/Intl Traveler<30Days: No Known Affected Area: No History of Present Illness HPI Pt is a 36y/o G1 @ 26-27wks with lynda twins (IVF). She is sent over from [facility] after their ultrasound BPP of the twins because her blood pressure is in the 170-180/100- 110 range , she is asymptomatic having no complaints problems no headaches of swelling she feels very good. Patient is currently refusing to have her blood drawn again just on the other day of and does not want to be monitored as well either after initial strip showed adequate heart rates for both babies . Patient currently taking labetalol 100 mg in the morning at 200 mg at night because she was not tolerating the morning dose higher level she is responded well to Procardia in the past so we'll repeat that today.. She has PNC in [place]. , BPs were initially 180s/100s. They nadired at 150s/90s. . She has known cHTN and is on labetalol 100 mg in am 200mg q pm. She was transferred here for further evaluation/monitoring. No LOF , VB, ctx. +FM x2. is complicated by: -- IVF -- twins -- cHTN (on labetalol 200mg qday, ASA 81mg) -- worsening BPs/elevated LFTs -- hypothyroidism (on levothyroxine 25mcg qday) -- AMA Weeks Gestation: 25 Para: 0 : 1 History Past Medical History Narrative Medical cHTN hypothyroidism Obstetric History Obstetric History 1. current, IVF , lynda twins Past Surgical History Narrative Surgical IVF LSC ovarian cystectomy b/l bunionectomy Family History Family History: Negative Social History Alcohol Use: No Tobacco Use: No Substance Abuse: No Allergies-Medications (Allergen,Severity, Reaction): Coded Allergies: codeine (Verified Allergy, Unknown, Nausea/Vomiting, 06/27/17) No Known Allergies (Verified Adverse Reaction, Unknown, 06/27/17) Home Meds Reported Medications Labetalol (Labetalol) 200 Mg Tab, 200 MG PO DAILY for Blood Pressure Management , TAB 0 Refills 06/27/[address] (Aspirin Low Dose) 81 Mg Tabdr, 81 MG PO DAILY, TAB 06/27/17 Vit-Iron Carbonyl ( Plus Iron 29-1 mg) 29 Mg Iron-1 Mg Tab, 1 TAB PO DAILY for Nutritional Supplement, #30 TAB 0 Refills 06/27/17 Levothyroxine (Synthroid) 25 Mcg Tab, 25 MCG PO DAILY for Thyroid, #30 TAB 0 Refills 06/27/17 Review of Systems Except as stated in HPI: all other systems reviewed are Neg Physical Exam Narrative General: well developed, well nourished, no acute distress HEENT: normocephalic atraumatic, extraocular movements intact, neck supple Abdomen: soft, gravid, nontender, nondistended Extremities: full range of motion Skin: normal coloration, no rashes, no suspicious skin lesions noted Neurologic: cranial nerves 2-12 grossly intact, normal muscle tone, normal gait Psychiatric: normal mood and affect, appropriate FHTs: (A) 140s, +accels, no decels, moderate variability, age appropriate; (B ) 150s, +accels, no decels, moderate variability, age appropriate Urbank: two ctx seen Cvx: deferred Caprini VTE Risk Assessment Caprini VTE Risk Assessment: No/Low Risk (score <= 1) Caprini Risk Assessment Model Point Value = 1 Point Value = 2 Point Value = 3 Point Value = 5 Age 41-60 Minor surgery BMI > 25 kg/m2 Swollen legs Varicose veins or History of unexplained or recurrent spontaneous Oral contraceptives or hormone replacement Sepsis (< 1 month) Serious lung disease, including pneumonia (< 1 month) Abnormal pulmonary function Acute myocardial infarction Congestive heart failure (< 1 month) History of inflammatory bowel disease Medical patient at bed rest Age 61-74 Arthroscopic surgery Major open surgery (> 45 min) Laparoscopic surgery (> 45 min) Malignancy Confined to bed (> 72 hours) Immobilizing plaster cast Central venous access Age >= 75 History of VTE Family history of VTE Factor V Leiden Prothrombin [id number] Lupus anticoagulant Anticardiolipin antibodies Elevated serum homocysteine Heparin-induced thrombocytopenia Other congenital or acquired thrombophilia Stroke (< 1 month) Elective arthroplasty Hip, pelvis, or leg fracture Acute spinal cord injury (< 1 month) 2 Prophylaxis Regimen Total Risk Factor Score Risk Level Prophylaxis Regimen 0-1 Low Early ambulation 2 Moderate Order ONE of the following: *Sequential Compression Device (SCD) *Heparin 5000 units SQ BID 3-4 Higher Order ONE of the following medications: *Heparin 5000 units SQ TID *Enoxaparin/Lovenox 40 mg SQ daily (WT < 150 kg, CrCl > 30 mL/min) *Enoxaparin/Lovenox 30 mg SQ daily (WT < 150 kg, CrCl > 10-29 mL/min) *Enoxaparin/Lovenox 30 mg SQ BID (WT < 150 kg, CrCl > 30 mL/min) AND/OR *Sequential Compression Device (SCD) 5 or more Highest Order ONE of the following medications: *Heparin 5000 units SQ TID (Preferred with Epidurals) *Enoxaparin/Lovenox 40 mg SQ daily (WT < 150 kg, CrCl > 30 mL/min) *Enoxaparin/Lovenox 30 mg SQ daily (WT < 150 kg, CrCl > 10-29 mL/min) *Enoxaparin/Lovenox 30 mg SQ BID (WT < 150 kg, CrCl > 30 mL/min) AND *Sequential Compression Device (SCD) 2 Data Data Vital Signs Reviewed: Yes Orders Orders Place In Observation (06/28/17 ) Diet Regular Basic (06/28/17 Breakfast) Vital Signs (Adult) [id number] AWAKE (06/28/17 01:05) Heart RT.Q12H (06/28/17 01:05) Activity Oob Ad Em (06/28/17 01:05) Complete Blood Count With Diff (06/28/17 06:00) Basic Metabolic Panel (Bmp) (06/28/17 06:00) Total Protein 24hr Urine (06/28/17 01:05) Acetaminophen (Tylenol) (06/28/17 01:15) Pzzwmbuw-Uwt-Aebqi-Iron Prenat (Stuartna (06/28/17 09:00) Al-Mag Hy-Si 40-40-4 Mg/Ml Liq (Mag-Al P (06/28/17 01:15) Sodium Chloride 0.9% Flush (Ns Flush) (06/28/17 09:00) Sodium Chloride 0.9% Flush (Ns Flush) (06/28/17 01:15) Zolpidem (Ambien) (06/28/17 01:15) Ondansetron Odt (Zofran Odt) (06/28/17 01:15) Us Ob Limited (06/28/17 08:30) Betamethasone Inj (Celestone Soluspan In (06/28/17 01:15) Intake + Output Q1H (06/28/17 01:05) Notify Parameters (06/28/17 01:05) ^ Check Deep Tendon Reflexes Q1H (06/28/17 01:05) Labetalol Inj (Trandate Inj) (06/28/17 01:15) Labetalol Inj (Trandate Inj) (06/28/17 01:15) Labetalol Inj (Trandate Inj) (06/28/17 01:30) Uric Acid (06/29/17 06:00) Hep A Ab Igm (06/28/17 01:05) Hepatitis B Surface Ag (06/28/17 01:05) Hepatitis C Ab,Igg (06/28/17 01:05) Hepatitis Delta Antibody (06/28/17 01:05) Levothyroxine (Synthroid) (06/28/17 08:00) Labetalol (Trandate) (06/28/17 01:15) Alex Bilateral/Knee High ENRRIQUE.QSHIFT (06/28/17 01:05) Assessment/Plan Problem List: (1) 25 weeks gestation of ICD Codes: Z3A.25 - 25 weeks gestation of (2) Twin , dichorionic/diamniotic, second trimester ICD Codes: O30.042 - Twin , dichorionic/diamniotic, second trimester (3) Chronic hypertension with exacerbation during in second trimester ICD Codes: O10.912 - Unspecified pre-existing hypertension complicating , second trimester (4) Elevated liver enzymes ICD Codes: R74.8 - Abnormal levels of other serum enzymes (5) AMA (advanced maternal age) primigravida 35+ ICD Codes: O09.519 - Supervision of elderly primigravida, unspecified trimester (6) conceived through in vitro fertilization ICD Codes: O09.819 - Supervision of resulting from assisted reproductive technology, unspecified trimester (7) Hypothyroidism affecting in second trimester ICD Codes: O99.282 - Endocrine, nutritional and metabolic diseases complicating , second trimester; E03.9 - Hypothyroidism, unspecified Assessment and Plan Pt is a 36y/o G1 @ 26-27 wks with: 1. lynda twins -- conceived through IVF -- records requested - -- NSTs BID -- BMZ x2 for lung maturity 2. cHTN with elevated BPs will give 10 mg procardia po now -- continue labetalol 100 mg q am & 200mg qHS, add Procardia XL 30 mg q d -- 5. hypothyroidism -- continue levothyroxine 25mg qday 6. AMA Francisco Dumont MD Jul 04, 2017 1030 Francisco Dumont II, MD Jul 04, 2017 10:45
[2017-07-04] MEDS ORDERED: NIFE1TAB85 PO (10:49)
--- NOTE | 2017-07-04 10:49 | PD ---
HPI Travel History International Travel<30 Days: No Contact w/Intl Traveler<30Days: No Known Affected Area: No Allergies-Medications (Allergen,Severity, Reaction): Coded Allergies: codeine (Verified Allergy, Unknown, Nausea/Vomiting, 06/27/17) Home Meds Active Scripts Labetalol (Labetalol) 200 Mg Tab, 200 MG PO DAILY for Blood Pressure Management , #45 TAB 3 Refills Take a half pill in the morning and 1 pill at bedtime. Prov:Eko,Soco Ryder MD R2 07/01/[address] (Aspirin Low Dose) 81 Mg Tabdr, 81 MG PO DAILY, TAB 06/27/17 Vit-Iron Carbonyl ( Plus Iron 29-1 mg) 29 Mg Iron-1 Mg Tab, 1 TAB PO DAILY for Nutritional Supplement, #30 TAB 0 Refills 06/27/17 Levothyroxine (Synthroid) 25 Mcg Tab, 25 MCG PO DAILY for Thyroid, #30 TAB 0 Refills 06/27/17 Physical Exam Narrative GENERAL: Well-nourished, well-developed patient. SKIN: Warm and dry. HEAD: Normocephalic and atraumatic. EYES: No scleral icterus. No injection or drainage. ENT: No nasal drainage noted. Mucous membranes pink. Airway patent. NECK: Supple, trachea midline. No JVD. CARDIOVASCULAR: Regular rate and rhythm without murmurs, gallops, or rubs. RESPIRATORY: Breath sounds equal bilaterally. No accessory muscle use. BREASTS: Bilateral exam showed no masses , no retractions, no nipple discharge. ABDOMEN/GI: Abdomen soft, non-tender, bowel sounds present, no rebound, no guarding Gravid to [-] weeks size Fundal Height: [-] GENITOURINARY: External Genitalia: intact and normal in appearance BUS glands: [-] Cervix: [-] Dilatation: [-] Effacement: [-] Station: [-] Presentation: [-] Membranes: [intact or ruptured] Uterine Contractions: [-] FHT's: Category: [-] Baseline: [-] Reactive: [-] Variability: [-] Decels: [-] EXTREMITIES: No cyanosis or edema. BACK: Nontender without obvious deformity. No CVA tenderness. NEUROLOGICAL: Awake and alert. Motor and sensory grossly within normal limits. Five out of 5 muscle strength in all muscle groups. Normal speech. Data Data Orders Orders Vital Signs (Adult) .ON ADMISSION (07/04/17 10:12) ^ Labor Status (07/04/17 10:12) Heart (07/04/17 10:12) Urinalysis - C+S If Indicated (07/04/17 10:12) ^ Non Stress Test (07/04/17 10:12) Cbc No Diff, Includes Plts (07/04/17 10:12) Comprehensive Metabolic Panel (07/04/17 10:12) Uric Acid (07/04/17 10:12) Us Ob Bpp Wo Nst (07/04/17 10:12) Nifedipine (Procardia) (07/04/17 10:30) MDM Diagnosis Diagnosis: Primary Impression: Twin gestation in second trimester Additional Impression: Chronic hypertension with exacerbation during in second trimester Disposition: 01 DISCHARGE HOME Condition: Stable Scripts Nifedipine ER 24 HR (Procardia XL) 30 Mg Tab 30 MG PO DAILY for Blood Pressure Management, #30 TAB 0 Refills Prov: Francisco Dmuont II, MD 07/04/17 Francisco Dumont II, MD Jul 04, 2017 10:49
[2017-07-04 11:03] VITALS: BP 135/84; PULSE 82
[2017-07-04 11:57] LABS: AMORPHOUS SEDIMENT, URINE OCC; BACTERIA, URINE FEW /hpf; BILIRUBIN, URINE NEG (NEG); BLOOD, URINE NEG (NEG); GLUCOSE,URINE NEG (NEG); KETONE, URINE NEG (NEG); MUCUS URINE FEW /lpf (OCC); NITRITE,URINE NEG (NEG); PH, URINE 5.5 (5.0-8.5); SQUAMOUS EPITHELIAL CELL URINE 5 /hpf (0-5); URINE COLOR YELLOW (YELLW/STRAW); URINE LEUKOCYTE ESTERASE NEG (NEG)
== END 2017-07-04 11:22 | disposition home or self-care (01) ==
LOC: HOBED 09:44
DX: O10.912 Unspecified pre-existing hypertension complicating pregnancy, second trimester (principal); O30.042 Twin pregnancy, dichorionic/diamniotic, second trimester; O99.282 Endocrine, nutritional and metabolic diseases complicating pregnancy, second trimester; E03.9 Hypothyroidism, unspecified; R74.8 Abnormal levels of other serum enzymes; O09.512 Supervision of elderly primigravida, second trimester; Z3A.27 27 weeks gestation of pregnancy
CPT/HCPCS: 81001; 99283

== ENCOUNTER 2017-07-04 19:36 | Inpatient (IN) | payer OTHER ==
[~2017-07-04] VITALS: Ht 152.4 cm; Wt 64.0 kg
[~2017-07-04 19:36] MED LIST changes: +NIFE1TAB85 PO
[2017-07-04] MEDS ORDERED: CALCIUM GLUCONATE 10% 1 GM/10 ML VIAL IV PUSH PRN (20:15)
[2017-07-04] MEDS ORDERED: DOCUSATE SODIUM 100 MG CAP PO PRN (20:15)
[2017-07-04] MEDS ORDERED: ONDANSETRON HCL 4 MG/2 ML VIAL IV PUSH PRN (20:15)
[2017-07-04] MEDS ORDERED: ONDANSETRON ODT 4 MG TAB PO PRN (20:15)
[2017-07-04] MEDS ORDERED: SODIUM CHLORIDE 0.9% FLUSH 10 ML FLUSH IV FLUSH PRN (20:15)
[2017-07-04] MEDS ORDERED: ACETAMINOPHEN 325 MG TAB PO PRN (20:15)
[2017-07-04] MEDS ORDERED: LABETALOL HCL 100 MG/20 ML VIAL IV PUSH PRN (20:15)
[2017-07-04] MEDS ORDERED: ZOLPIDEM TARTRATE 5 MG TAB PO PRN (20:15)
--- NOTE | 2017-07-04 20:25 | HHI.HP ---
History & Physical H&P OB ED Note (Detail) Patient Name: Elie Bull Unit Number: [id number] Date of : 1980 Patient Status: Departed Emergency Room Attending Doctor: Francisco Dumont II, MD HPI HPI Travel History International Travel<30 Days: No Contact w/Intl Traveler<30Days: No Known Affected Area: No History (Limited) History She is 36-year-old white female at 26-27 weeks gestation with twins who presents complaining of increasing frontal headache and the swelling in the legs and chest pain that today Allergies-Medications Allergies-Medications (Allergen,Severity, Reaction): Coded Allergies: codeine (Verified Allergy, Unknown, Nausea/Vomiting, 06/27/17) Home Meds Active Scripts Labetalol (Labetalol) 200 Mg Tab, 200 MG PO DAILY for Blood Pressure Management , #45 TAB 3 Refills Take a half pill in the morning and 1 pill at bedtime. Prov:IsaeloSoco MD R2 07/01/[address] (Aspirin Low Dose) 81 Mg Tabdr, 81 MG PO DAILY, TAB 06/27/17 Vit-Iron Carbonyl ( Plus Iron 29-1 mg) 29 Mg Iron-1 Mg Tab, 1 TAB PO DAILY for Nutritional Supplement, #30 TAB 0 Refills 06/27/17 Levothyroxine (Synthroid) 25 Mcg Tab, 25 MCG PO DAILY for Thyroid, #30 TAB 0 Refills 06/27/17 ROS Review of Systems positive headache, positive chest pain, negative shortness of breath or abdominal pain no nausea vomiting and diarrhea positive swelling of lower extremities Physical Exam Physical Exam Narrative GENERAL: Well-nourished, well-developed patient. SKIN: Warm and dry. HEAD: Normocephalic and atraumatic. EYES: No scleral icterus. No injection or drainage. ENT: No nasal drainage noted. Mucous membranes pink. Airway patent. NECK: Supple, trachea midline. No JVD. CARDIOVASCULAR: Regular rate and rhythm without murmurs, gallops, or rubs. RESPIRATORY: Breath sounds equal bilaterally. No accessory muscle use. BREASTS: Bilateral exam showed no masses , no retractions, no nipple discharge. ABDOMEN/GI: Abdomen soft, non-tender, bowel sounds present, no rebound, no guarding Gravid to [-] weeks size Fundal Height: [-] GENITOURINARY: External Genitalia: intact and normal in appearance BUS glands: [-] Cervix: [-] Dilatation: [-] Effacement: [-] Station: [-] Presentation: [-] Membranes: [intact or ruptured] Uterine Contractions: [-] FHT's: Category: [1-] Baseline: [-133/135] Reactive: [yes-] Variability: [mod-] Decels: [0-] EXTREMITIES: No cyanosis 2-3 + pedal edema. BACK: Nontender without obvious deformity. No CVA tenderness. NEUROLOGICAL: Awake and alert. Motor and sensory grossly within normal limits. Five out of 5 muscle strength in all muscle groups. Normal speech. 2+ DTRS Data Data Data Orders Orders Vital Signs (Adult) .ON ADMISSION (07/04/17 10:12) ^ Labor Status (07/04/17 10:12) Heart (07/04/17 10:12) Urinalysis - C+S If Indicated (07/04/17 10:12) ^ Non Stress Test (07/04/17 10:12) Cbc No Diff, Includes Plts (07/04/17 10:12) Comprehensive Metabolic Panel (07/04/17 10:12) Uric Acid (07/04/17 10:12) Us Ob Bpp Wo Nst (07/04/17 10:12) Nifedipine (Procardia) (07/04/17 10:30) MDM MDM Diagnosis Diagnosis: Primary Impression: Twin gestation in second trimester 26-27 wks with a history of chronic hypertension on labetalol and Procardia with headache swelling and chest pain that developed today after being seen here this morning in OB ED and feeling fine was started on Procardia XL and sent home however when she was at home his symptoms began and worsened as above Additional Impression: Chronic hypertension with exacerbation during in second trimester, with headache chest pain in the swelling in the lower extremities noted today Disposition: admit for observation Condition: Stable Scripts Nifedipine ER 24 HR (Procardia XL) 30 Mg Tab 30 MG PO DAILY for Blood Pressure Management, #30 TAB 0 Refills Prov: Francisco Dumont II, MD 07/04/17 Francisco Dumont II, MD Jul 04, [id number] Francisco Dumont II, MD Jul 04, 2017 20:25
[2017-07-04] MEDS ORDERED: ACETAMIN 325 MG/BUTALBITAL 50 MG/CAFFEINE 40 MG TAB PO PRN (20:30)
[2017-07-04 20:42] LABS: HEMATOCRIT 31.1 % (35.0-46.0); MEAN CORPUSCULAR HEMOGLOBIN 30.3 PG (27.0-34.0); MEAN CORPUSCULAR HGB CONC 33.6 % (32.0-36.0); PLATELET COUNT 196 TH/MM3 (150-450); RED BLOOD COUNT 3.45 MIL/MM3 (4.00-5.30); RED CELL DISTRIBUTION WIDTH 13.8 % (11.6-17.2); REVIEW FLAG FINAL; WHITE BLOOD COUNT 7.7 TH/MM3 (4.0-11.0)
[2017-07-04 20:46] LABS: BACTERIA, URINE MANY /hpf; BLOOD, URINE NEG (NEG); COMMENT (UR) CULTURE INDICATED; CULTURE IF INDICATED CULTURE INDICATED; GLUCOSE,URINE NEG (NEG); KETONE, URINE NEG (NEG); MUCUS URINE FEW /lpf (OCC); NITRITE,URINE NEG (NEG); SQUAMOUS EPITHELIAL CELL URINE 3 /hpf (0-5); URINE COLOR YELLOW (YELLW/STRAW)
[2017-07-04] MEDS ORDERED: SULFAMETHOXAZOLE-TRIMETHOPRIM DS 800-160 MG TAB PO SCH (21:00)
[2017-07-04] MEDS: SODIUM CHLORIDE 0.9% FLUSH 10 ML FLUSH IV FLUSH SCH (21:00)
[2017-07-04] MEDS ORDERED: LABETALOL HCL 200 MG TAB PO SCH (21:00)
[2017-07-04 21:05] LABS: ANION GAP 8 MEQ/L (5-15); AST (GOT) 22 U/L (15-37); BICARBONATE 22.9 MEQ/L (21.0-32.0); BLOOD UREA NITROGEN 8 MG/DL (7-18); CHLORIDE 105 MEQ/L (98-107); GLOMERULAR FILTRATION RATE 95 ML/MIN (>89); SODIUM (NA) 136 MEQ/L (136-145); URIC ACID 5.4 MG/DL (2.6-6.0)
[2017-07-04 21:06] LABS: ALT (GPT) 47 U/L (10-53)
[2017-07-04 21:16] LABS: ALKALINE PHOSPHATASE 161 U/L (45-117); TOTAL BILIRUBIN ADULT 0.2 MG/DL (0.2-1.0)
[2017-07-04 21:19] LABS: CREATINE KINASE 70 U/L (26-192)
[2017-07-05] MEDS: SULFAMETHOXAZOLE-TRIMETHOPRIM 800-160 MG/20 ML UDC PO SCH ×3 (01:00→23:58)
[2017-07-05] MEDS: LEVOTHYROXINE SODIUM 25 MCG TAB PO SCH (06:00)
[2017-07-05] MEDS ORDERED: NIFEdipine 10 MG CAP PO ONE (08:00)
[2017-07-05] MEDS: SODIUM CHLORIDE 0.9% FLUSH 10 ML FLUSH IV FLUSH SCH ×2 (08:50→20:19)
[2017-07-05] MEDS: ASPIRIN 81 MG CHEW TAB CHEW SCH (08:50)
[2017-07-05] MEDS: MULTIVIT/MIN/PREN/FOL AC/IRON PRENATAL TAB PO SCH (08:50)
[2017-07-05] MEDS ORDERED: LABETALOL HCL 100 MG TAB PO SCH (09:00)
[2017-07-05] MEDS ORDERED: NIFEdipine 30 MG SUSTAINED RELEASE TAB PO SCH (09:00)
[2017-07-05] MEDS ORDERED: ACETAMINOPHEN 650 MG/20.3 ML UDC PO PRN (11:15)
--- NOTE | 2017-07-05 11:56 | PD.OB.ANTE ---
Subjective Interval History Ms Bull is feeling much better this morning. She is eating breakfast as we enter the room. Her HATFIELD and CP have resolved and her feet swelling has improved. She has no ctx or discharge and good movement. Denies SOB, N/V/D, and DVT pain. Objective Lab & Micro Results Test 07/04/17 20:00 07/04/17 20:25 07/05/17 02:56 07/05/17 08:20 Urine Color YELLOW Urine Turbidity HAZY Urine pH 6.0 Urine Specific [place] 1.013 Urine Protein TRACE mg/dL Urine Glucose (UA) NEG mg/dL Urine Ketones NEG mg/dL Urine Occult Blood NEG Urine Nitrite NEG Urine Bilirubin NEG Urine Urobilinogen LESS THAN 2.0 MG/DL Urine Leukocyte Esterase NEG Urine RBC 1 /hpf Urine WBC 2 /hpf Urine Squamous Epithelial Cells 3 /hpf Urine Amorphous Sediment RARE Urine Bacteria MANY /hpf Urine Mucus FEW /lpf Microscopic Urinalysis Comment CULTURE INDICATED White Blood Count 7.7 TH/MM3 Red Blood Count 3.45 MIL/MM3 Hemoglobin 10.4 GM/DL Hematocrit 31.1 % Mean Corpuscular Volume 90.0 FL Mean Corpuscular Hemoglobin 30.3 PG Mean Corpuscular Hemoglobin Concent 33.6 % Red Cell Distribution Width 13.8 % Platelet Count 196 TH/MM3 Mean Platelet Volume 10.3 FL Blood Urea Nitrogen 8 MG/DL Creatinine 0.70 MG/DL Random Glucose 86 MG/DL Total Protein 6.8 GM/DL Albumin 2.7 GM/DL Calcium Level 8.6 MG/DL Uric Acid 5.4 MG/DL Alkaline Phosphatase 161 U/L Aspartate Amino Transf (AST/SGOT) 22 U/L Alanine Aminotransferase (ALT/SGPT) 47 U/L Total Bilirubin 0.2 MG/DL Sodium Level 136 MEQ/L Potassium Level 4.0 MEQ/L Chloride Level 105 MEQ/L Carbon Dioxide Level 22.9 MEQ/L Anion Gap 8 MEQ/L Estimat Glomerular Filtration Rate 95 ML/MIN Total Creatine Kinase 70 U/L 58 U/L 60 U/L Troponin I 0.04 NG/ML 0.03 NG/ML 0.03 NG/ML Thyroid Stimulating Hormone 3rd Gen 3.490 uIU/ML Date/Time Source Procedure Growth Status 07/04/17 20:00 Urine Clean Catch Urine Culture Pending Received Physical Exam GENERAL: Well-nourished, well-developed patient sitting up in bed eating breakfast in NAD. CARDIOVASCULAR: Regular rate and rhythm without murmur, gallop, or rub. RESPIRATORY: Breath sounds equal bilaterally in all lung nielsen. No accessory muscle use. ABDOMEN/GI: Abdomen soft, non-tender. Normal BS. Fundus: [-] GENITOURINARY: Cervix: - Dilatation: - Effacement: - Station: - Presentation: - Membranes: intact Uterine Contractions: none FHT's: Category: [-] Baseline: [-] Reactive: [-] Variability: [-] Decels: [-] EXTREMITIES: No cyanosis, non-tender, without signs of DVT. Bilateral LEs with mild swelling in dorsal aspects of feet w/o pitting. Assessment and Plan Assessment and Plan 36YO at 26/6 weeks with Di/Di twin gestation who went AMA yesterday afternoon from the OB ED then returned last night with HATFIELD, CP, elevated BPs, and LE edema. Pt is feeling better today but BP still 161/98 during interview. Goal for today is to get BPs under control with medication prior to discharge. Pt w/o ctx or ROM. Denies CP, HATFIELD, SOB, N/V/D, and DVT pain, but does have some LE edema. H/H 10.4/31.1, CMP wnl, TSH 3.49, UA w/trace protein, bacteria and mucous, urine cx pending. OB US 07/04/17 showing 26/5 weeks with Di/Di breech twins Twin A - female w/BPP 8/10, normal fluid level and dopplers normal with S/D ratio 3.1 Twin B - male w/BPP 8/10, normal fluid, doppler normal with elevated S/D ratio 5.9 -twin discordance 23% PLAN: -ECG with possible left atrial enlargement/NSR/borderline ECG -Troponins 0.04->0.03->0.03 -Total CK wnl -Labs wnl as above -UA w/bacteriuria and urine cx pending -Labetalol 100mg PO qday and 200mg PO qhs -Procardia XL 30mg day -Bactrim 800-160mg q12h -ASA 81mg day -Levothyroxine 25mcg daily -Discontinue Fioricet -24hr creatinine and urine protein pending Pt discussed with Lewis Licea MD R1 Jul 05, 2017 11:56
--- NOTE | 2017-07-05 20:11 | HHI.PR ---
GEAR REPAIR SUPERVISOR Note Note NST report Indications: IUP at 26 weeks, chronic hypertension, possible superimposed preeclampsia, hypothyroidism, advanced maternal age, di/di twins by IVF heart rate baseline with fetus A in the 150s, some accelerations, moderate long-term variability, and no decelerations and fetus B in the 150s, moderate long-term variability, no decelerations, some accelerations: FHR is reassuring and appropriate for gestational age Final diagnosis:IUP at 26 weeks, chronic hypertension, possible superimposed preeclampsia, hypothyroidism, advanced maternal age, di/di twins by IVF Follow-up: Daily NSTs Soco Fitzgerald MD R2 Jul 05, 2017 20:11
[2017-07-05] MEDS: NIFEdipine 30 MG SUSTAINED RELEASE TAB PO SCH (20:16)
--- NOTE | 2017-07-05 21:23 | EKG ---
Date Performed: 07/05/2017 Time Performed: 19:19:43 PTAGE: 36 years EKG: Sinus rhythm NORMAL ECG PREVIOUS TRACING : 07/04/2017 20.34 No significant change from previous tracing noted. DOCTOR: Reji Chowdhury Interpretating Date/Time 07/05/2017 21:22:34
[2017-07-05 22:27] LABS: URINE TOTAL PROTEIN TIMED 12.3 MG/DL
[2017-07-05 22:31] LABS: CREAT 24 TIMED 58.9 MG/DL
[2017-07-05] MEDS: LABETALOL HCL 200 MG TAB PO SCH (23:57)
[2017-07-06] MEDS: LEVOTHYROXINE SODIUM 25 MCG TAB PO SCH (08:26)
[2017-07-06] MEDS: SODIUM CHLORIDE 0.9% FLUSH 10 ML FLUSH IV FLUSH SCH ×2 (08:27→19:56)
[2017-07-06] MEDS: ASPIRIN 81 MG CHEW TAB CHEW SCH (08:27)
[2017-07-06] MEDS: LABETALOL HCL 200 MG TAB PO SCH ×2 (08:28→19:56)
[2017-07-06] MEDS: MULTIVIT/MIN/PREN/FOL AC/IRON PRENATAL TAB PO SCH (08:31)
--- NOTE | 2017-07-06 10:35 | PD.OB.ANTE ---
Subjective Interval History Had multiple elevated BPs yesterday requiring medication adjustment. HATFIELD has resolved. Pt reports feeling "great". +FM x2. No LOF or VB. Objective Lab & Micro Results Test 07/05/17 21:30 Urine Total Volume 24 Hours 2890 ML Urine Creatinine 24 Hour 1.70 GM/24HR Urine Total Protein 24 Hour 355 MG/24HR Date/Time Source Procedure Growth Status 07/04/17 20:00 Urine Clean Catch Urine Culture - Preliminary IMMATURE GROWTH - REINCUBATE Resulted Physical Exam GENERAL: Well-nourished, well-developed patient. CARDIOVASCULAR: Well perfused RESPIRATORY: Respirations unlabored ABDOMEN/GI: Abdomen soft, non-tender. FHTs A: 145, +accels, no devels, moderate variability, reactive FHTs B: 145, +accels, no devels, moderate variability, reactive [place]: quiet Assessment and Plan Assessment and Plan 36YO at 27.0wks with 1. Eugene twins -- NSTs BID (age appropriate) -- s/p BMZ at 24wks -- 07/04 US showed A (female) BPP 8/10, normal fluid, S/D 3.1; B (male) BPP 8/ 10, normal fluid, S/D 5.9; discordance 23% 2. cHTN, r/o superimposed preE -- pt with elevated BPs on 07/04 requiring PO procardia -- continued elevated BPs on 07/05 requiring medication titration -- current regimen is labetalol 200mg BID and procardia 30mg XL qHS -- continue ASA 81mg -- recent 24hr urine protein increased from 260 to 350 -- dx ?s/i preE vs poorly controlled cHTN -- continue to titrate meds to BP goal of 140-150/70-80 3. hypothyroidism -- continue 25mcg levothyrozine qday Dispo: continue inpt management until BPs stable; plan for delivery btw 34- 37wks depending on definitive dx Jordan Shaw MD Jul 06, 2017 10:35
--- NOTE | 2017-07-06 12:04 | EKG ---
Date Performed: 07/04/2017 Time Performed: 20:34:46 PTAGE: 36 years EKG: Sinus rhythm POSSIBLE LEFT ATRIAL ENLARGEMENT BORDERLINE ECG NO PREVIOUS TRACING DOCTOR: Shanna Brandon Interpretating Date/Time 07/06/2017 12:03:36
[2017-07-06] MEDS: SULFAMETHOXAZOLE-TRIMETHOPRIM 800-160 MG/20 ML UDC PO SCH (12:31)
[2017-07-06] MEDS: NIFEdipine 30 MG SUSTAINED RELEASE TAB PO SCH (19:56)
[2017-07-07] MEDS: SULFAMETHOXAZOLE-TRIMETHOPRIM 800-160 MG/20 ML UDC PO SCH (00:30)
[2017-07-07] MEDS: LEVOTHYROXINE SODIUM 25 MCG TAB PO SCH (06:00)
[2017-07-07] MEDS: LABETALOL HCL 200 MG TAB PO SCH (08:54)
[2017-07-07] MEDS: ASPIRIN 81 MG CHEW TAB CHEW SCH (08:55)
--- NOTE | 2017-07-07 09:29 | PD.OB.ANTE ---
Subjective Interval History Pt denies headache, vision changes or right upper quadrant pain. Tolerating diet. Reports active movements x 2. Denies feeling contractions. No vaginal bleeding or leaking. Objective Lab & Micro Results Date/Time Source Procedure Growth Status 07/04/17 20:00 Urine Clean Catch Urine Culture - Final 50-100,000 CFU/ML MIXED GRAM POSITIVE... Complete Physical Exam GENERAL: Well-nourished, well-developed patient. CARDIOVASCULAR: Regular rate and rhythm without murmurs, gallops, or rubs. RESPIRATORY: Breath sounds equal bilaterally. No accessory muscle use. ABDOMEN/GI: Abdomen soft, non-tender. Fundus: [-] GENITOURINARY: External Genitalia: intact and normal in appearance FHT's: Category: [1 x2] Baseline: [130s] Reactive: [-] Variability: [good] Decels: [none] EXTREMITIES: No cyanosis or edema, non-tender, without signs of DVT. DTRs 2+, no ankle clonus Assessment and Plan Assessment and Plan 36YO at 27.1 wks with 1. Eugene twins -- NSTs BID (age appropriate) -- s/p Betamethasone series completed at 24wks -- 07/04 US showed A (female) BPP 8/10, normal fluid, S/D 3.1; B (male) BPP 8/ 10, normal fluid, S/D 5.9; discordance 23% 2. cHTN, r/o superimposed preE -- Pt with elevated BPs on 07/04 requiring PO Procardia -- continued elevated BPs on 07/05 requiring medication titration -- current regimen is Labetalol 200mg BID and Procardia 30mg XL qHS -- continue ASA 81mg -- recent 24hr urine protein increased from 260 to 350mg -- Continue to titrate meds to BP goal of 140-150/70-80 3. hypothyroidism -- continue 25mcg levothyrozine qday Dispo: continue inpt management until BPs stable; plan for delivery btw 34- 37wks depending on definitive dx Prasanth Khoury MD Jul 07, 2017 09:29
--- NOTE | 2017-07-07 10:58 | EKG ---
Date Performed: 07/06/2017 Time Performed: 19:46:20 PTAGE: 36 years EKG: Sinus rhythm NORMAL ECG PREVIOUS TRACING : 07/05/2017 19.19 No significant change from previous tracing noted. DOCTOR: Reji Chowdhury Interpretating Date/Time 07/07/2017 10:57:29
[2017-07-07 12:03] LABS: HEMATOCRIT 31.7 % (35.0-46.0); MEAN CELL VOLUME 89.7 FL (80.0-100.0); MEAN CORPUSCULAR HEMOGLOBIN 30.9 PG (27.0-34.0); MEAN CORPUSCULAR HGB CONC 34.5 % (32.0-36.0); PLATELET COUNT 164 TH/MM3 (150-450); RED BLOOD COUNT 3.54 MIL/MM3 (4.00-5.30); RED CELL DISTRIBUTION WIDTH 13.8 % (11.6-17.2); REVIEW FLAG FINAL; WHITE BLOOD COUNT 7.2 TH/MM3 (4.0-11.0)
[2017-07-07 12:18] LABS: BICARBONATE 22.4 MEQ/L (21.0-32.0); POTASSIUM 3.7 MEQ/L (3.5-5.1); URIC ACID 5.1 MG/DL (2.6-6.0)
[2017-07-07] MEDS ORDERED: LABE200T2 PO (12:27)
--- NOTE | 2017-07-07 12:28 | HHI.DCPOC ---
Discharge Care Plan Diagnosis: (1) AMA (advanced maternal age) primigravida 35+ (2) Hypothyroidism affecting in second trimester (3) Twin , dichorionic/diamniotic, second trimester (4) Chronic hypertension with exacerbation during in second trimester Report Symptoms to Your Doctor -Temperature above 100.5 degrees -Redness, of incision or excessive or foul smelling drainage -Unusual pain or calf pain -Increased vaginal bleeding -Painful or difficulty urinating -Feelings of extreme sadness or anxiety after 2 weeks Goals to Promote Your Health * To prevent worsening of your condition and complications, please have close follow up with your OB doctor and with [facility]. * To maintain your health at the optimal level, please follow your doctors' recommendations. Directions to Meet Your Goals Take your medications as prescribed Follow your dietary instruction Follow activity as directed Ensure plenty of rest for recovery Drink fluids for hydration Keep your appointments as scheduled Take your immunizations and boosters as scheduled If your symptoms worsen call your PCP, if no PCP go to Urgent Care Center or Emergency Room Smoking is Dangerous to Your Health. Avoid second hand smoke Call the 24-hour crisis hotline for domestic abuse at Surjit Garcia MD R2 Jul 07, 2017 12:28
== END 2017-07-07 12:43 | disposition home or self-care (01) | DRG 781 ==
LOC: HOBED 19:36 → H2EB 20:36 → OBSVTOIN 07-05 08:41
PROVIDERS: ADMIT Obstetrics & Gynecology Maternal & Fetal Medicine; ATTEND Obstetrics & Gynecology Maternal & Fetal Medicine
DX: O10.912 Unspecified pre-existing hypertension complicating pregnancy, second trimester (principal); O30.042 Twin pregnancy, dichorionic/diamniotic, second trimester; O09.512 Supervision of elderly primigravida, second trimester; R51 Headache; R07.9 Chest pain, unspecified; O12.02 Gestational edema, second trimester; O32.1XX0 Maternal care for breech presentation, not applicable or unspecified; E03.9 Hypothyroidism, unspecified; O99.282 Endocrine, nutritional and metabolic diseases complicating pregnancy, second trimester; Z3A.27 27 weeks gestation of pregnancy; Z88.5 Allergy status to narcotic agent
CPT/HCPCS: 80048; 80053; 81001; 82550; 82570; 84157; 84443; 84484; 84550; 85027; 87086; 93005

== ENCOUNTER → 2017-07-09 | Emergency (ER) | payer OTHER ==
--- NOTE | 2017-07-09 11:44 | PD ---
HPI Chief Complaint chronic HTN, severe IUGR Date Seen: Jul 09, 2017 Time Seen: 11:44 Travel History International Travel<30 Days: No Contact w/Intl Traveler<30Days: No History of Present Illness HPI Patient is a 36 year old female at 27 and 3/7 weeks gestation, HUYEN 2017, who presents to the OB ED from [facility]. Patient feels well today. She denies leakage of fluid, vaginal bleeding, and contractions. She feels baby moving regularly. She denies [place]/N/V/D/fever/sick contacts/SOB/calf pain/ dizziness/seeing spots. No continuous routine OB care but sees MFM at [facility], with reported next visit on . History of IVF with donor eggs, Di-Di twins. AMA. Obesity. Chronic HTN with superimposed Preeclampsia on labetolol 200 mg BID, Procardia XR 30mg hs. Labs on review from chart notable for 07/05: CBC showing mild anemia c/w , CMP wnl, hepatitis profile negative. UA wnl at that time. She had 24hr protein 07/05 = 355. Indications for transfer: MFM Dr. Mcallister recommending transfer due to Twin B: severe growth restriction, breech, <1000g, absent end-diastolic flow on US 07/09. Steroids given (betamethasone 12mg IM) in addition to magnesium 06/28/17-06/29/17. History Past Medical History Narrative Medical History of IVF with donor eggs, Di-Di twins. AMA. Obesity. Chronic HTN with superimposed Preeclampsia on labetolol 200 mg BID, Procardia XR 30mg hs. Hypothyroidism chronic on synthroid 25mcg daily Obstetric History Obstetric History Noted above Past Surgical History Narrative Surgical Ovarian cyst 2016 Bunionectomy Family History Family History: Negative Social History Alcohol Use: No Tobacco Use: No Substance Abuse: No Allergies-Medications (Allergen,Severity, Reaction): Coded Allergies: codeine (Verified Allergy, Unknown, Nausea/Vomiting, 06/27/17) Home Meds Active Scripts Labetalol (Labetalol) 200 Mg Tab, 200 MG PO BID for Blood Pressure Management, # 60 TAB 3 Refills Take as written until changed by your doctors. Prov:Surjit Garcia MD R2 12/17/17 Nifedipine ER 24 HR (Procardia XL) 30 Mg Tab, 30 MG PO DAILY for Blood Pressure Management, #30 TAB 0 Refills Prov:Francisco Dumont II, MD 07/04/[address] (Aspirin Low Dose) 81 Mg Tabdr, 81 MG PO DAILY, TAB 06/27/17 Vit-Iron Carbonyl ( Plus Iron 29-1 mg) 29 Mg Iron-1 Mg Tab, 1 TAB PO DAILY for Nutritional Supplement, #30 TAB 0 Refills 06/27/17 Levothyroxine (Synthroid) 25 Mcg Tab, 25 MCG PO DAILY for Thyroid, #30 TAB 0 Refills 06/27/17 Review of Systems General / Constitutional: No: Fever, Chills Eyes: No: Diploplia, Blurred Vision, Visual changes, Pain HENT: No: Headaches, Lightheadedness Cardiovascular: No: Chest Pain or Discomfort, Palpitations Respiratory: No: Cough, Short of Breath Gastrointestinal: No: Nausea, Vomiting, Diarrhea, Abdominal Pain Genitourinary: No: Urgency, Frequency, Dysuria, Oliguria Musculoskeletal: No: Weakness, Edema Skin: No Rash, No Itching Neurologic: No: Weakness, Dizziness Psychiatric: No: Anxiety, Depression Physical Exam Narrative GENERAL: Well-nourished, well-developed patient. SKIN: Warm and dry. No rashes or ecchymoses. HEAD: Normocephalic and atraumatic. EYES: No scleral icterus. No injection or drainage. ENT: No nasal drainage noted. Mucous membranes pink. Airway patent. NECK: Supple, trachea midline. No JVD. CARDIOVASCULAR: Regular rate and rhythm without murmurs, gallops, or rubs. RESPIRATORY: Breath sounds equal bilaterally. No accessory muscle use. ABDOMEN/GI: Abdomen soft, non-tender, bowel sounds present, no rebound, no guarding. Gravid. GENITOURINARY: deferred External Genitalia: intact and normal in appearance Uterine Contractions: absent FHT's A: Category: 1 Baseline: 140s Reactive: 150s Variability: mod Decels: no FHT's B: Category: 1 Baseline: 140s Reactive: 160s Variability: mod Decels: no EXTREMITIES: No cyanosis or edema. BACK: Nontender without obvious deformity. No CVA tenderness. NEUROLOGICAL: Awake and alert. Motor and sensory grossly within normal limits. Five out of 5 muscle strength in all muscle groups. Normal speech. Data Data Vital Signs Reviewed: Yes Orders Orders Vital Signs (Adult) .ON ADMISSION (07/09/17 11:05) ^ Labor Status (07/09/17 11:05) ^ Non Stress Test (07/09/17 11:05) ^ Hydration (07/09/17 11:05) Complete Blood Count With Diff (07/09/17 11:32) Comprehensive Metabolic Panel (07/09/17 11:32) MDM Medical Record Reviewed: Yes Plan 36 year old female at 27 and 3/7 weeks gestation, HUYEN 10/05/2017, who presents to the OB ED from [facility]. She is being transferred to [facility] for indications noted below. CBC and CMP ordered. Indications for transfer: [facility] Dr. Mcallister recommending transfer due to Twin B: severe growth restriction, breech, <1000g, absent end-diastolic flow on US 07/09. Steroids given (betamethasone 12mg IM) in addition to magnesium 06/28/17-. Transfer initiated by Dr. Ines Licea, accepting physician Dr. Zeke Coronel. SDW Dr. Licea Condition: Stable Tierney Fraser MD R2 Jul 09, 2017 11:44
[2017-07-09 12:13] LABS: AUTOMATED NEUTROPHIL # 4.9 TH/MM3 (1.8-7.7); BASOPHIL % 0.3 % (0.0-2.0); EOSINOPHIL % 0.6 % (0.0-4.0); HEMATOCRIT 34.2 % (35.0-46.0); HEMOGLOBIN 11.7 GM/DL (11.6-15.3); LYMPH % 22.2 % (9.0-44.0); LYMPHOCYTE # 1.6 TH/MM3 (1.0-4.8); MEAN CELL VOLUME 89.2 FL (80.0-100.0); MEAN CORPUSCULAR HEMOGLOBIN 30.4 PG (27.0-34.0); MONO % 6.9 % (0.0-8.0); MONOCYTE # 0.5 TH/MM3 (0-0.9); PLATELET COUNT 178 TH/MM3 (150-450); RED BLOOD COUNT 3.84 MIL/MM3 (4.00-5.30); RED CELL DISTRIBUTION WIDTH 13.9 % (11.6-17.2)
--- NOTE | 2017-07-09 12:19 | PD ---
History of Present Illness History of Present Illness The patient is a 36-year-old with complicated by advanced maternal age, IVF with donor eggs, dye twins, preeclampsia, obesity, growth discordance with twin B IUGR and abdominal circumference less than 5th percentile as well as intermittent absent EDF with brain sparing. She was admitted here previously for elevated blood pressures initially had a 24-hour urine that was normal on 06/29 at 243, she had elevated transaminases at that time. She also received a course of betamethasone at that time as well as magnesium sulfate for neuro protection. These were stable so she was discharged home and repeat 24-hour urine was performed on 07/05 and was 355. She is sent over today from the [facility] due to the new finding of intermittent absent EDF. BPP was 8 out of 8 for both fetuses and reassuring NST findings. The patient is asymptomatic at this time. The recommendation by Dr. Ennis is for transfer to [facility] as estimated weight of twin B is less than 1000 g. I spoke with the patient and she is in agreement with transfer to [facility]. A call was placed to the transfer center and Dr. Zeke Coronel is the accepting physician. The patient will be transferred. The risks, benefits, and alternatives were discussed with her and she is willing to accept these risks for the benefit of higher risk care. Kandi Licea MD Jul 09, 2017 12:19
[2017-07-09 12:31] LABS: ALBUMIN 2.8 GM/DL (3.4-5.0); ALT (GPT) 26 U/L (10-53); AST (GOT) 18 U/L (15-37); BICARBONATE 20.7 MEQ/L (21.0-32.0); BLOOD UREA NITROGEN 11 MG/DL (7-18); CALCIUM 8.9 MG/DL (8.5-10.1); CHLORIDE 108 MEQ/L (98-107); CREATININE 0.68 MG/DL (0.50-1.00); GLOMERULAR FILTRATION RATE 98 ML/MIN (>89); GLUCOSE,RANDOM 84 MG/DL (74-106); SODIUM (NA) 137 MEQ/L (136-145)
[2017-07-09 12:33] LABS: ALKALINE PHOSPHATASE 185 U/L (45-117); TOTAL BILIRUBIN ADULT 0.2 MG/DL (0.2-1.0); TOTAL PROTEIN 6.9 GM/DL (6.4-8.2)
== END | disposition home or self-care (01) ==
LOC: HOBED 10:47
DX: O11.2 Pre-existing hypertension with pre-eclampsia, second trimester (principal); O09.512 Supervision of elderly primigravida, second trimester; O36.5922 Maternal care for other known or suspected poor fetal growth, second trimester, fetus 2; O30.042 Twin pregnancy, dichorionic/diamniotic, second trimester; Z3A.27 27 weeks gestation of pregnancy
CPT/HCPCS: 80053; 85025; 99285